=== PATIENT | male | born 1960 | race American Indian/Alaskan Native ===

== ENCOUNTER 2020-06-19 06:01 | Inpatient (IN) | payer MEDICAID ==
[2020-06-19] MEDS ORDERED: methylPREDNISolone Sod Succinate 125 MG/2 ML INJ IV ONE (06:16)
[2020-06-19] MEDS ORDERED: IPRATROPIUM 0.02% NEBU 2.5 ML IH ONE ×2 (06:19→06:27)
[2020-06-19] MEDS ORDERED: ALBUTEROL 2.5 MG/3 ML NEBU IH ONE ×3 (06:19→09:14)
--- NOTE | 2020-06-19 06:19 | Emergency Department Report ---
ED General Adult HPI - General Chief complaint: Dyspnea/Respdistress Stated complaint: TRAV Time Seen by Provider: 06/19/20 06:15 Source: patient Mode of arrival: Wheelchair Limitations: Physical Limitation - History of Present Illness Initial comments: Patient is a 60-year-old male who presents to the emergency department for evaluation of progressively worsening dyspnea over the past 3 weeks. Complains of mildly productive cough without fever. Patient denies chest pain, denies calf pain or swelling. Patient denies nausea vomiting diarrhea, denies sore throat. Patient states he had a previous episode during which she was treated by the fire department with an albuterol nebulizer with relief of the symptoms - Related Data Allergies Allergy/AdvReac Type Severity Reaction Status Date / Time No Known Allergies Allergy Verified 06/19/20 06:10 ED Review of Systems ROS: Stated complaint: TRAV Other details as noted in HPI Comment: All other systems reviewed and negative ED Past Medical Hx - Past Medical History Previous Medical History?: Yes Hx Hypertension: Yes Additional medical history: chronic back - Surgical History Past Surgical History?: No - Social History Smoking Status: Never Smoker Substance Use Type: None ED Physical Exam - General Limitations: Physical Limitation General appearance: alert, in distress - Head Head exam: Present: atraumatic, normocephalic - Eye Eye exam: Present: normal appearance - ENT ENT exam: Present: mucous membranes moist - Neck Neck exam: Present: normal inspection - Respiratory Respiratory exam: Present: respiratory distress, rales, rhonchi, accessory muscle use - Cardiovascular Cardiovascular Exam: Present: regular rate, normal rhythm. Absent: systolic murmur, diastolic murmur, rubs, gallop - GI/Abdominal GI/Abdominal exam: Present: soft, normal bowel sounds - Rectal Rectal exam: Present: deferred - Extremities Exam Extremities exam: Present: normal inspection - Back Exam Back exam: Present: normal inspection - Neurological Exam Neurological exam: Present: alert, oriented X3 - Psychiatric Psychiatric exam: Present: normal affect, normal mood - Skin Skin exam: Present: warm, dry, intact, normal color. Absent: rash ED Course Vital Signs 06/19/20 06/19/20 06/19/20 06:07 06:18 06:29 Temperature 97.6 F 97.5 F L Pulse Rate 116 H 81 Pulse Rate [ 108 H Bilateral] Respiratory 18 18 Rate Respiratory 28 H Rate [Bilateral ] Blood Pressure 100/80 110/74 O2 Sat by Pulse 96 100 Oximetry 06/19/20 06:30 Temperature Pulse Rate 109 H Pulse Rate [ Bilateral] Respiratory 28 H Rate Respiratory Rate [Bilateral ] Blood Pressure 129/100 O2 Sat by Pulse 100 Oximetry - Reevaluation(s) Reevaluation #1: 06/19/20 08:08 Patient initially treated with DuoNeb's x3, Solu-Medrol 125 IV x1. Reevaluation #2: 06/19/20 08:08 On reevaluation, patient remains dyspneic, treated with furosemide 40 mg IV x1, remains on O2 Ventimask. Reevaluation #3: 06/19/20 08:09 Despite significant diuresis, patient remains an mild to moderate respiratory distress, began on BiPAP. Patient admitted, PUI protocol and precautions initiated. ED Medical Decision Making - Lab Data Result diagrams: 06/19/20 07:04 06/19/20 07:04 Lab Results 06/19/20 06/19/20 06/19/20 Range/Units 06:20 07:04 07:04 WBC 7.9 (4.5-11.0) K/mm3 RBC 4.54 (3.65-5.03) M/mm3 Hgb 15.0 (11.8-15.2) gm/dl Hct 45.2 (35.5-45.6) % MCV 100 H (84-94) fl MCH 33 H (28-32) pg MCHC 33 (32-34) % RDW 13.8 (13.2-15.2) % Plt Count 235 (140-440) K/mm3 Lymph % (Auto) 29.9 (13.4-35.0) % [place] % (Auto) 6.9 (0.0-7.3) % Eos % (Auto) 4.6 H (0.0-4.3) % Baso % (Auto) 0.6 (0.0-1.8) % Lymph # (Auto) 2.4 (1.2-5.4) K/mm3 [place] # (Auto) 0.5 (0.0-0.8) K/mm3 Eos # (Auto) 0.4 (0.0-0.4) K/mm3 Baso # (Auto) 0.1 (0.0-0.1) K/mm3 Seg Neutrophils % 58.0 (40.0-70.0) % Seg Neutrophils # 4.6 (1.8-7.7) K/mm3 Sodium 139 (137-145) mmol/L Potassium 3.9 (3.6-5.0) mmol/L Chloride 101.5 (98-107) mmol/L Carbon Dioxide 29 (22-30) mmol/L Anion Gap 12 mmol/L BUN 11 (9-20) mg/dL Creatinine 0.9 (0.8-1.3) mg/dL Estimated GFR > 60 ml/min BUN/Creatinine Ratio 12 % Glucose 110 H (75-100) mg/dL POC Glucose 105 (70-105) mg/dL Lactic Acid (0.7-2.0) mmol/L Calcium 9.3 (8.4-10.2) mg/dL Magnesium 2.10 (1.7-2.3) mg/dL Total Bilirubin 1.10 (0.1-1.2) mg/dL AST 15 (5-40) units/L ALT 19 (7-56) units/L Alkaline Phosphatase 74 (35-129) units/L Troponin T < 0.010 (0.00-0.029) ng/mL NT-Pro-B Natriuret Pep (0-900) pg/mL Total Protein 7.4 (6.3-8.2) g/dL Albumin 4.2 (3.9-5) g/dL Albumin/Globulin Ratio 1.3 % 06/19/20 06/19/20 Range/Units 07:04 07:04 WBC (4.5-11.0) K/mm3 RBC (3.65-5.03) M/mm3 Hgb (11.8-15.2) gm/dl Hct (35.5-45.6) % MCV (84-94) fl MCH (28-32) pg MCHC (32-34) % RDW (13.2-15.2) % Plt Count (140-440) K/mm3 Lymph % (Auto) (13.4-35.0) % [place] % (Auto) (0.0-7.3) % Eos % (Auto) (0.0-4.3) % Baso % (Auto) (0.0-1.8) % Lymph # (Auto) (1.2-5.4) K/mm3 [place] # (Auto) (0.0-0.8) K/mm3 Eos # (Auto) (0.0-0.4) K/mm3 Baso # (Auto) (0.0-0.1) K/mm3 Seg Neutrophils % (40.0-70.0) % Seg Neutrophils # (1.8-7.7) K/mm3 Sodium (137-145) mmol/L Potassium (3.6-5.0) mmol/L Chloride (98-107) mmol/L Carbon Dioxide (22-30) mmol/L Anion Gap mmol/L BUN (9-20) mg/dL Creatinine (0.8-1.3) mg/dL Estimated GFR ml/min BUN/Creatinine Ratio % Glucose (75-100) mg/dL POC Glucose (70-105) mg/dL Lactic Acid 1.20 (0.7-2.0) mmol/L Calcium (8.4-10.2) mg/dL Magnesium (1.7-2.3) mg/dL Total Bilirubin (0.1-1.2) mg/dL AST (5-40) units/L ALT (7-56) units/L Alkaline Phosphatase (35-129) units/L Troponin T (0.00-0.029) ng/mL NT-Pro-B Natriuret Pep 1202 H (0-900) pg/mL Total Protein (6.3-8.2) g/dL Albumin (3.9-5) g/dL Albumin/Globulin Ratio % Vital Signs 06/19/20 06/19/20 06/19/20 06:07 06:18 06:29 Temperature 97.6 F 97.5 F L Pulse Rate 116 H 81 Pulse Rate [ 108 H Bilateral] Respiratory 18 18 Rate Respiratory 28 H Rate [Bilateral ] Blood Pressure 100/80 110/74 O2 Sat by Pulse 96 100 Oximetry 06/19/20 06:30 Temperature Pulse Rate 109 H Pulse Rate [ Bilateral] Respiratory 28 H Rate Respiratory Rate [Bilateral ] Blood Pressure 129/100 O2 Sat by Pulse 100 Oximetry - EKG Data -: EKG Interpreted by Me (Sinus tachycardia 103, no ST-T changes, normal QRS as read by me) - Radiology Data Radiology results: report reviewed Pulmonary vascular congestion per radiology Critical care attestation.: If time is entered above; I have spent that time in minutes in the direct care of this critically ill patient, excluding procedure time. ED Disposition Clinical Impression: Acute congestive heart failure, Acute respiratory failure Disposition: OP ADMIT IP TO THIS HOSP Is pt being admited?: Yes Condition: Stable Referrals: PRIMARY CARE, [Primary Care Provider] - 3-5 Days
[2020-06-19] MEDS: IPRATROPIUM/ALBUTEROL SULFATE 3 ML AMPUL.NEB IH SCH ×3 (06:30→20:30)
--- NOTE | 2020-06-19 06:57 | XRay Report ---
CHEST 1 VIEW [id number] INDICATION / CLINICAL INFORMATION: Dyspnea COMPARISON: None available. FINDINGS: SUPPORT DEVICES: None HEART / MEDIASTINUM: Mild cardiomegaly LUNGS / PLEURA: Mildly congested appearance is seen and there probably is slight interstitial edema. No definite focal infiltrates are seen. No pneumothorax. ADDITIONAL FINDINGS: No significant additional findings. Signer Name: Darvin Sawant MD Signed: 06/19/2020 6:52 AM Workstation Name: [id number]
[2020-06-19] MEDS ORDERED: FUROSEMIDE 40 MG/4 ML INJ IV ONE (07:19)
[2020-06-19 07:56] LABS: Basophils # (Auto) 0.1 K/mm3 (0.0-0.1); Eosinophils # (Auto) 0.4 K/mm3 (0.0-0.4); Eosinophils % (Auto) 4.6 % (0.0-4.3); Monocytes # (Auto) 0.5 K/mm3 (0.0-0.8); Monocytes % (Auto) 6.9 % (0.0-7.3)
[2020-06-19 07:57] LABS: Hematocrit 45.2 % (35.5-45.6); Mean Corpuscular HGB Conc 33 % (32-34); Mean Corpuscular Volume 100 fl (84-94); Red Blood Count 4.54 M/mm3 (3.65-5.03); Red Cell Distribution Width 13.8 % (13.2-15.2)
[2020-06-19 07:58] LABS: Alanine Aminotransferase 19 units/L (7-56); Albumin 4.2 g/dL (3.9-5); BUN/Creatinine Ratio 12; Basophils % (Auto) 0.6 % (0.0-1.8); Blood Urea Nitrogen 11 mg/dL (9-20); Calcium 9.3 mg/dL (8.4-10.2); Hemolysis Index 10; Lymphocytes # (Auto) 2.4 K/mm3 (1.2-5.4); Lymphocytes % (Auto) 29.9 % (13.4-35.0); Platelet Count 235 K/mm3 (140-440)
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
[2020-06-19] MEDS ORDERED: MORPHINE 2 MG/1 ML INJ IV PRN (09:00)
[2020-06-19] MEDS ORDERED: ONDANSETRON 4 MG/2 ML INJ IV PRN ×2 (09:00→22:55)
[2020-06-19] MEDS ORDERED: cefTRIAXone/NS 2 GM/100 ML 2 GM/100 ML BAG IV SCH (09:00)
[2020-06-19] MEDS ORDERED: MAGNESIUM HYDROXIDE (MOM) ORAL LIQD UDC PO PRN (09:00)
[2020-06-19] MEDS ORDERED: AZITHROMYCIN/NS 500 MG/250 ML 500 MG/250 ML BAG IV SCH (09:00)
[2020-06-19] MEDS ORDERED: ACETAMINOPHEN 325 MG TAB PO PRN ×2 (09:00→22:55)
[2020-06-19 09:30] LABS: C-Reactive Protein 0.7 mg/dL (0.00-1.30)
[2020-06-19] MEDS: dexAMETHasone 4 MG/ML VIAL IV SCH (09:42)
[2020-06-19] MEDS ORDERED: ENOXAPARIN 80 MG/0.8 ML INJ SUB-Q SCH (10:00)
--- NOTE | 2020-06-19 12:14 | Consultation ---
History of Present Illness Consult date: 06/19/20 Consult reason: congestive heart failure History of present illness: Patient is a 60-year old M who presents to the emergency department with brad rtness of breath, cough and wheezing. Chest x-ray shows no interstitial edema but he is currently undergoing further evaluation for suspected COVID 19 infection. A cardiac consultation has been requested for CHF. There is no chest pain, and no palpitations. There is mild lower extremity edema. Patient gives a history of hypertension and poly-substance abuse. He denies a prior cardiac history and had no prior cardiac workup. 12-lead ECG is sinus rhythm with no acute ST or T wave changes. No prior ECG available for comparison. Past History Past Medical History: hypertension, other (chronic back pain, sciatica) Past Surgical History: No surgical history Social history: , Lives alone, smoking, alcohol abuse, IV drug use, full code, other (cocaine, meth, crack, marijuana, tobacco, ) Family history: no significant family history Medications and Allergies Allergies Allergy/AdvReac Type Severity Reaction Status Date / Time No Known Allergies Allergy Verified 06/19/20 06:10 Active Meds: Active Medications Acetaminophen (Acetaminophen 325 Mg Tab) 650 mg PO Q4H PRN PRN Reason: Pain MILD(1-3)/Fever >100.5/MONTES Dexamethasone (Dexamethasone 4 Mg/Ml Vial) 6 mg IV QDAY [facility] Stop: 06/28/20 10:01 Last Admin: 06/19/20 09:42 Dose: 6 mg Documented by: Enoxaparin Sodium (Enoxaparin 40 Mg/0.4 Ml Inj) 40 mg SUB-Q QDAY@1000 [facility] Famotidine (Famotidine 20 Mg/2 Ml Inj) 20 mg IV BID [facility] Furosemide (Furosemide 20 Mg/2 Ml Inj) 20 mg IV BID@0600,1800 [facility] Azithromycin (Zithromax/Ns) 500 mg in 250 mls @ 250 mls/hr IV Q24H [facility] Last Admin: 06/19/20 09:17 Dose: 250 mls/hr Documented by: Ceftriaxone Sodium (Rocephin/Ns 2 Gm/100 Ml) 2 gm in 100 mls @ 200 mls/hr IV Q24H [facility]; Protocol Last Admin: 06/19/20 09:17 Dose: 200 mls/hr Documented by: Magnesium Hydroxide (Magnesium Hydroxide (Mom) Oral Liqd Udc) 30 ml PO Q4H PRN PRN Reason: Constipation Melatonin (Melatonin 5 Mg Tab) 5 mg PO QHS PRN PRN Reason: Sleep Morphine Sulfate (Morphine 2 Mg/1 Ml Inj) 2 mg IV Q4H PRN PRN Reason: Pain, Moderate (4-6) Ondansetron HCl (Ondansetron 4 Mg/2 Ml Inj) 4 mg IV Q8H PRN PRN Reason: Nausea And Vomiting Sodium Chloride (Sodium Chloride 0.9% 10 Ml Flush Syringe) 10 ml IV BID [facility] Sodium Chloride (Sodium Chloride 0.9% 10 Ml Flush Syringe) 10 ml IV PRN PRN PRN Reason: LINE FLUSH Review of Systems Cardiovascular: edema, shortness of breath, dyspnea on exertion, no chest pain, no palpitations, no rapid/irregular heart beat Physical Examination Vital Signs Temp Pulse Resp BP Pulse Ox 97.6 F 116 H 18 100/80 96 06/19/20 06:07 06/19/20 06:07 06/19/20 06:07 06/19/20 06:07 06/19/20 06:07 General appearance: no acute distress HEENT: Positive: PERRL Cardiac: Positive: Reg Rate and Rhythm Lungs: Positive: Decreased Breath Sounds Neuro: Positive: Grossly Intact Extremities: Present: +1 Edema Results 06/19/20 07:04 06/19/20 08:49 Cardiac Enzymes 06/19/20 06/19/20 Range/Units 07:04 08:49 AST 15 (5-40) units/L Lactate Dehydrogenase 165 (91-180) units/L CBC 06/19/20 Range/Units 07:04 WBC 7.9 (4.5-11.0) K/mm3 RBC 4.54 (3.65-5.03) M/mm3 Hgb 15.0 (11.8-15.2) gm/dl Hct 45.2 (35.5-45.6) % Plt Count 235 (140-440) K/mm3 Lymph # (Auto) 2.4 (1.2-5.4) K/mm3 [place] # (Auto) 0.5 (0.0-0.8) K/mm3 Eos # (Auto) 0.4 (0.0-0.4) K/mm3 Baso # (Auto) 0.1 (0.0-0.1) K/mm3 Comprehensive Metabolic Panel 06/19/20 06/19/20 Range/Units 07:04 08:49 Sodium 139 (137-145) mmol/L Potassium 3.9 (3.6-5.0) mmol/L Chloride 101.5 (98-107) mmol/L Carbon Dioxide 29 (22-30) mmol/L BUN 11 (9-20) mg/dL Creatinine 0.9 (0.8-1.3) mg/dL Glucose 110 H 136 H (75-100) mg/dL Calcium 9.3 (8.4-10.2) mg/dL AST 15 (5-40) units/L ALT 19 (7-56) units/L Alkaline Phosphatase 74 (35-129) units/L Total Protein 7.4 (6.3-8.2) g/dL Albumin 4.2 (3.9-5) g/dL
[2020-06-19] MEDS: FAMOTIDINE 20 MG/2 ML INJ IV SCH ×2 (12:21→22:13)
--- NOTE | 2020-06-19 13:31 | Consultation ---
History of Present Illness Consult date: 06/19/20 Requesting physician: KODY PETERSON Reason for consult: other (Acute Hypoxemic Respiratory Failure; PUI COVID-19) History of present illness: PULMONARY/CCM CONSULT NOTE (Full dictation # ) Please see dictated notes for full details Past History Past Medical History: hypertension, other (chronic back pain, sciatica) Past Surgical History: No surgical history Social history: , Lives alone, smoking, alcohol abuse, IV drug use, full code, other (cocaine, meth, crack, marijuana, tobacco, ) Family history: no significant family history Medications and Allergies Allergies Allergy/AdvReac Type Severity Reaction Status Date / Time No Known Allergies Allergy Verified 06/19/20 06:10 Active Meds: Active Medications Acetaminophen (Acetaminophen 325 Mg Tab) 650 mg PO Q4H PRN PRN Reason: Pain MILD(1-3)/Fever >100.5/MONTES Dexamethasone (Dexamethasone 4 Mg/Ml Vial) 6 mg IV QDAY [facility] Stop: 06/28/20 10:01 Last Admin: 06/19/20 09:42 Dose: 6 mg Documented by: Enoxaparin Sodium (Enoxaparin 40 Mg/0.4 Ml Inj) 40 mg SUB-Q QDAY@1000 [facility] Famotidine (Famotidine 20 Mg/2 Ml Inj) 20 mg IV BID [facility] Last Admin: 06/19/20 12:21 Dose: Not Given Documented by: Furosemide (Furosemide 20 Mg/2 Ml Inj) 20 mg IV BID@0600,1800 OP[facility] Azithromycin (Zithromax/Ns) 500 mg in 250 mls @ 250 mls/hr IV Q24H [facility] Last Admin: 06/19/20 09:17 Dose: 250 mls/hr Documented by: Ceftriaxone Sodium (Rocephin/Ns 2 Gm/100 Ml) 2 gm in 100 mls @ 200 mls/hr IV Q24H [facility]; Protocol Last Admin: 06/19/20 09:17 Dose: 200 mls/hr Documented by: Magnesium Hydroxide (Magnesium Hydroxide (Mom) Oral Liqd Udc) 30 ml PO Q4H PRN PRN Reason: Constipation Melatonin (Melatonin 5 Mg Tab) 5 mg PO QHS PRN PRN Reason: Sleep Morphine Sulfate (Morphine 2 Mg/1 Ml Inj) 2 mg IV Q4H PRN PRN Reason: Pain, Moderate (4-6) Ondansetron HCl (Ondansetron 4 Mg/2 Ml Inj) 4 mg IV Q8H PRN PRN Reason: Nausea And Vomiting Sodium Chloride (Sodium Chloride 0.9% 10 Ml Flush Syringe) 10 ml IV BID [facility] Last Admin: 06/19/20 12:25 Dose: Not Given Documented by: Sodium Chloride (Sodium Chloride 0.9% 10 Ml Flush Syringe) 10 ml IV PRN PRN PRN Reason: LINE FLUSH Physical Examination Vital signs: Vital Signs Temp Pulse Resp BP Pulse Ox 97.6 F 116 H 18 100/80 96 06/19/20 06:07 06/19/20 06:07 06/19/20 06:07 06/19/20 06:07 06/19/20 06:07 Results - Laboratory Findings CBC and BMP: 06/19/20 07:04 06/19/20 08:49 PT/INR, D-dimer D-Dimer 1022.01 ng/mlDDU (0-234) H 06/19/20 08:15 Abnormal lab findings: Abnormal Labs 06/19/20 06/19/20 06/19/20 07:04 07:04 07:04 MCV 100 H MCH 33 H Eos % (Auto) 4.6 H D-Dimer Glucose 110 H NT-Pro-B Natriuret Pep 1202 H 06/19/20 06/19/20 08:15 08:49 MCV MCH Eos % (Auto) D-Dimer 1022.01 H Glucose 136 H NT-Pro-B Natriuret Pep
--- NOTE | 2020-06-19 13:47 | Consultation ---
History of Present Illness - Reason for Consult Consult date: 06/19/20 r/o COVID Requesting physician: KODY PETERSON - History of Present Illness 60 years old male with history of hypertension, chronic back pain, bipolar depression, cocaine, marijuana and meth abuse, tobacco abuse, admitted on 06/19/2020 secondary to a month history of dry cough associated with subjective fever, generalized malaise. Patient denies any contact with COVID-19 patients.temperature 97.6, HR 116, RR 18, O2 sat 96, BP 100/80. Initial WBC 7.9. D-dimer 1022. Ferritin 200. BNP 1202. Procalcitonin 0.05. In the ED patient was placed on Ventimask and then placed on BiPAP. Chest x-ray shows interstitial edema bilaterally. Procalcitonin 0.05. Review of Systems: reviewed ED and H&P notes. Review of system deferred to minimize COVID-19 transmission. Past History Past Medical History: hypertension, other (chronic back pain, sciatica) Past Surgical History: No surgical history Social history: , Lives alone, smoking, alcohol abuse, IV drug use, full code, other (cocaine, meth, crack, marijuana, tobacco, ) Family history: no significant family history Medications and Allergies Allergies Allergy/AdvReac Type Severity Reaction Status Date / Time No Known Allergies Allergy Verified 06/19/20 06:10 Active Meds: Active Medications Acetaminophen (Acetaminophen 325 Mg Tab) 650 mg PO Q4H PRN PRN Reason: Pain MILD(1-3)/Fever >100.5/MONTES Dexamethasone (Dexamethasone 4 Mg/Ml Vial) 6 mg IV QDAY [facility] Stop: 06/28/20 10:01 Last Admin: 06/19/20 09:42 Dose: 6 mg Documented by: Enoxaparin Sodium (Enoxaparin 40 Mg/0.4 Ml Inj) 40 mg SUB-Q QDAY@1000 OPAL Famotidine (Famotidine 20 Mg/2 Ml Inj) 20 mg IV BID [facility] Last Admin: 06/19/20 12:21 Dose: Not Given Documented by: Furosemide (Furosemide 20 Mg/2 Ml Inj) 20 mg IV BID@0600,1800 OPAL Azithromycin (Zithromax/Ns) 500 mg in 250 mls @ 250 mls/hr IV Q24H [facility] Last Admin: 06/19/20 09:17 Dose: 250 mls/hr Documented by: Ceftriaxone Sodium (Rocephin/Ns 2 Gm/100 Ml) 2 gm in 100 mls @ 200 mls/hr IV Q24H [facility]; Protocol Last Admin: 06/19/20 09:17 Dose: 200 mls/hr Documented by: Magnesium Hydroxide (Magnesium Hydroxide (Mom) Oral Liqd Udc) 30 ml PO Q4H PRN PRN Reason: Constipation Melatonin (Melatonin 5 Mg Tab) 5 mg PO QHS PRN PRN Reason: Sleep Morphine Sulfate (Morphine 2 Mg/1 Ml Inj) 2 mg IV Q4H PRN PRN Reason: Pain, Moderate (4-6) Ondansetron HCl (Ondansetron 4 Mg/2 Ml Inj) 4 mg IV Q8H PRN PRN Reason: Nausea And Vomiting Sodium Chloride (Sodium Chloride 0.9% 10 Ml Flush Syringe) 10 ml IV BID [facility] Last Admin: 06/19/20 12:25 Dose: Not Given Documented by: Sodium Chloride (Sodium Chloride 0.9% 10 Ml Flush Syringe) 10 ml IV PRN PRN PRN Reason: LINE FLUSH Physical Examination - Physical Exam Narrative exam: Physical exam deferred to minimize COVID-19 transmission during pandemic. ER and internal medicine physical examination notes reviewed. - Constitutional Vitals: Vital Signs Temp Pulse Resp BP Pulse Ox 97.5 F L 109 H 28 H 129/100 100 06/19/20 06:18 06/19/20 06:30 06/19/20 06:30 06/19/20 06:30 06/19/20 06:30 Temperature -Last 24 Hours Temperature 97.5 F Temperature 97.6 F Results - Labs CBC & Chem 7: 06/19/20 07:04 06/19/20 08:49 Labs: Abnormal lab results 06/19/20 06/19/20 06/19/20 Range/Units 07:04 07:04 07:04 MCV 100 H (84-94) fl MCH 33 H (28-32) pg Eos % (Auto) 4.6 H (0.0-4.3) % D-Dimer (0-234) ng/mlDDU Glucose 110 H (75-100) mg/dL NT-Pro-B Natriuret Pep 1202 H (0-900) pg/mL 06/19/20 06/19/20 Range/Units 08:15 08:49 MCV (84-94) fl MCH (28-32) pg Eos % (Auto) (0.0-4.3) % D-Dimer 1022.01 H (0-234) ng/mlDDU Glucose 136 H (75-100) mg/dL NT-Pro-B Natriuret Pep (0-900) pg/mL Assessment and Plan Cultures: Blood culture no growth today SARS CoV2 PCR pending Assessment: 60 years old male with history of hypertension, chronic back pain, bipolar depression, cocaine, marijuana and meth abuse, tobacco abuse, admitted on 06/19/2020 secondary to a month history of dry cough associated with subjective fever, generalized malaise: #Severe sepsis: Present on admission with tachycardia, hypotension, hypoxia; likely due to bilateral pneumonia. #Bilateral pneumonia versus volume overload: Suspect COVID-19 infection. Noted mildly elevated proBNP. Procalcitonin is low, doubt bacterial component. #Acute hypoxemic respiratory failure: Now on BiPAP. Likely secondary to bilateral pneumonia +/- volume overload #Bipolar depression #Polysubstance abuse Recommendations: -Needs to rule out PE and DVT -Follow-up SARS-CoV-2 PCR -Obtain SARS Covid 2 IgG -Continue dexamethasone 6 mg IV/PO daily for now -If SARS-CoV-2 PCR is positive start remdesivir for 5 days -Monitor inflammatory markers - ferritin, Ddimer, CRP, LDH -Monitor liver function test on Remdesivir -Continue anticoagulation per System Protocol -Stop ceftriaxone and azithromycin, procalcitonin <0.25 ng/mL All laboratory, cultures and imaging were reviewed. Will follow Mis Ferrer MD Infectious Diseases [employer] [facility] M [phone] O [phone]
--- NOTE | 2020-06-19 14:18 | Vascular Lab Report ---
DUPLEX DOPPLER LOWER EXTREMITY VEINS, BILATERAL INDICATION: r/o dvt. TECHNIQUE: Duplex doppler imaging was performed through the veins of both lower extremities using ve nous compression and other maneuvers. COMPARISON: No relevant prior imaging study available. FINDINGS: Right Common femoral vein: Negative. Right Superficial femoral vein: Negative. Right Popliteal vein: Negative. Right Calf veins: Negative. Left Common femoral vein: Negative. Left Superficial femoral vein: Negative. Left Popliteal vein: Negative. Left Calf veins: Negative. Additional findings: None. IMPRESSION: No sonographic evidence for DVT in either lower extremity. Signer Name: Juan Carlos Guzman Jr, MD Signed: 06/19/2020 2:14 PM Workstation Name: [id number]
[2020-06-19] MEDS: ENOXAPARIN 40 MG/0.4 ML INJ SUB-Q SCH (14:32)
--- NOTE | 2020-06-19 14:49 | Consultation ---
History of Present Illness Consult date: 06/19/20 Reason for consult: dyspnea, cough History of present illness: This is a 60-year-old male with HTN, chronic back pain, sciatica and drug abuse (cocaine, marijuana, methamphetamine, cigarettes (1/2 ppd), crack) who presents to the emergency department for evaluation of progressively worsening dyspnea over the past 1 month with cough (occasionally productive), subjective fevers, excessive fatigue and atypical chest pain with cough and BUE swelling. Patient denies nausea,vomiting, diarrhea, chills, hemopytsis, recent weight loss, loss of sense of taste or smell, night sweats or chest pain. Patient denies any recent sick contacts or known COVID-19 exposure. Patient states he has had previous similar episodes during which he was treated by the fire department with an albuterol nebulizer with relief of the symptoms. Patient states that he has a history of bipolar and depression and has auditory and visual hallucinations. In the emergency department the patient received albuterol, Atrovent, Solu-Medrol and was diuresed with 40 mg of Lasix but despite this he still remained dyspneic and tachypneic on a Ventimask and the decision was made to begin BiPAP therapy. Patient was also made a COVID-19 PUI and a COVID-19 PCR was sent. Work-up in the emergency department revealed elevated proBNP of 1202 and his chest x-ray was mildly congested with probable slight interstitial edema and mild cardiomegaly with no focal infiltrates. Brandon hernandez will be admitted to the hospitalist service as a COVID-19 PUI with acute congestive heart failure and acute respiratory failure. Patient smokes ciaretts, says 1 pack for 1 month 13 years. Patient drinks alcohol and uses illegal drugs. He is not doing any job. Not and has two children. Patient has no known drug allergies. Patient alert, awake and resting on room air. O2 saturation 97%. Still complaining shortness of breath and non productive cough. Patient afebrile. Has no leukocytosis. Chest xray obtained 06/19/20 reported Mildly congested appearance is seen and there probably is slight interstitial edema. No definite focal infiltrates are seen. No pneumothorax. Venous doppler studies obtained 06/19/20 reported No sonographic evidence for DVT in either lower extremity. Patient presently on Dexamethasone, S/C Lovenox, Famotidine. Past History Past Medical History: heart failure, hypertension, other (chronic back pain, sciatica) Past Surgical History: No surgical history Social history: , Lives alone, smoking, alcohol abuse, IV drug use, full code, other (cocaine, meth, crack, marijuana, tobacco, ) Family history: no significant family history Medications and Allergies Allergies Allergy/AdvReac Type Severity Reaction Status Date / Time No Known Allergies Allergy Verified 06/19/20 06:10 Active Meds: Active Medications Acetaminophen (Acetaminophen 325 Mg Tab) 650 mg PO Q4H PRN PRN Reason: Pain MILD(1-3)/Fever >100.5/MONTES Dexamethasone (Dexamethasone 4 Mg/Ml Vial) 6 mg IV QDAY [facility] Stop: 06/28/20 10:01 Last Admin: 06/19/20 09:42 Dose: 6 mg Documented by: Enoxaparin Sodium (Enoxaparin 40 Mg/0.4 Ml Inj) 40 mg SUB-Q QDAY@1000 [facility] Last Admin: 06/19/20 14:32 Dose: Not Given Documented by: Famotidine (Famotidine 20 Mg/2 Ml Inj) 20 mg IV BID [facility] Last Admin: 06/19/20 12:21 Dose: Not Given Documented by: Furosemide (Furosemide 20 Mg/2 Ml Inj) 20 mg IV BID@0600,1800 [facility] Magnesium Hydroxide (Magnesium Hydroxide (Mom) Oral Liqd Udc) 30 ml PO Q4H PRN PRN Reason: Constipation Melatonin (Melatonin 5 Mg Tab) 5 mg PO QHS PRN PRN Reason: Sleep Morphine Sulfate (Morphine 2 Mg/1 Ml Inj) 2 mg IV Q4H PRN PRN Reason: Pain, Moderate (4-6) Ondansetron HCl (Ondansetron 4 Mg/2 Ml Inj) 4 mg IV Q8H PRN PRN Reason: Nausea And Vomiting Sodium Chloride (Sodium Chloride 0.9% 10 Ml Flush Syringe) 10 ml IV BID [facility] Last Admin: 06/19/20 12:25 Dose: Not Given Documented by: Sodium Chloride (Sodium Chloride 0.9% 10 Ml Flush Syringe) 10 ml IV PRN PRN PRN Reason: LINE FLUSH Review of Systems All systems: negative Physical Examination Vital signs: Vital Signs Temp Pulse Resp BP Pulse Ox 97.6 F 116 H 18 100/80 96 06/19/20 06:07 06/19/20 06:07 06/19/20 06:07 06/19/20 06:07 06/19/20 06:07 General appearance: no acute distress, alert Eyes: non-icteric ENT: oropharynx moist Neck: supple, no JVD Effort: normal Ascultation: Bilateral: diminished breath sounds Cardiovascular: regular rate and rhythm Gastrointestinal: normoactive bowel sounds, soft, non-tender Integumentary: normal Extremities: no cyanosis, no edema Musculoskeletal: no deformities Gait: other (Resting in bed.) normal mental status, non-focal exam, pupils equal and round, CN II-XII normal affect normal Results - Laboratory Findings CBC and BMP: 06/19/20 07:04 06/19/20 08:49 PT/INR, D-dimer D-Dimer 1022.01 ng/mlDDU (0-234) H 06/19/20 08:15 Abnormal lab findings: Abnormal Labs 06/19/20 06/19/20 06/19/20 07:04 07:04 07:04 MCV 100 H MCH 33 H Eos % (Auto) 4.6 H D-Dimer Glucose 110 H NT-Pro-B Natriuret Pep 1202 H 06/19/20 06/19/20 08:15 08:49 MCV MCH Eos % (Auto) D-Dimer 1022.01 H Glucose 136 H NT-Pro-B Natriuret Pep - Diagnostic Findings Chest x-ray: report reviewed, image reviewed Additional studies: CHEST 1 VIEW 0645 06/19/20 INDICATION / CLINICAL INFORMATION: Dyspnea COMPARISON: None available. FINDINGS: SUPPORT DEVICES: None HEART / MEDIASTINUM: Mild cardiomegaly LUNGS / PLEURA: Mildly congested appearance is seen and there probably is slight interstitial edema. No definite focal infiltrates are seen. No pneumothorax. ADDITIONAL FINDINGS: No significant additional findings. DUPLEX DOPPLER LOWER EXTREMITY VEINS, BILATERAL 06/19/20 INDICATION: r/o dvt. TECHNIQUE: Duplex doppler imaging was performed through the veins of both lower extremities using venous compression and other maneuvers. COMPARISON: No relevant prior imaging study available. FINDINGS: Right Common femoral vein: Negative. Right Superficial femoral vein: Negative. Right Popliteal vein: Negative. Right Calf veins: Negative. Left Common femoral vein: Negative. Left Superficial femoral vein: Negative. Left Popliteal vein: Negative. Left Calf veins: Negative. Additional findings: None. IMPRESSION: No sonographic evidence for DVT in either lower extremity. Assessment and Plan This is a 60-year-old male with HTN, chronic back pain, sciatica and drug abuse (cocaine, marijuana, methamphetamine, cigarettes (1/2 ppd), crack) who presents to the emergency department for evaluation of progressively worsening dyspnea over the past 1 month with cough (occasionally productive), subjective fevers, excessive fatigue and atypical chest pain with cough and BUE swelling. Patient denies nausea,vomiting, diarrhea, chills, hemopytsis, recent weight l oss, loss of sense of taste or smell, night sweats or chest pain. Patient denies any recent sick contacts or known COVID-19 exposure. Patient states he has had previous similar episodes during which he was treated by the fire department with an albuterol nebulizer with relief of the symptoms. Patient states that he has a history of bipolar and depression and has auditory and visual hallucinations. In the emergency department the patient received albuterol, Atrovent, Solu-Medrol and was diuresed with 40 mg of Lasix but despite this he still remained dyspneic and tachypneic on a Ventimask and the decision was made to begin BiPAP therapy. Patient was also made a COVID-19 PUI and a COVID-19 PCR was sent. Work-up in the emergency department revealed elevated proBNP of 1202 and his chest x-ray was mildly congested with probable slight interstitial edema and mild cardiomegaly with no focal infiltrates. Patient will be admitted to the hospitalist service as a COVID-19 PUI with acute congestive heart failure and acute respiratory failure. Patient smokes [employer], says 1 pack for 1 month 13 years. Patient drinks alcohol and uses illegal drugs. He is not doing any job. Not and has two children. Patient has no known drug allergies. Patient alert, awake and resting on room air. O2 saturation 97%. Still complaining shortness of breath and non productive cough. Patient afebrile. Has no leukocytosis. Chest xray obtained 06/19/20 reported Mildly congested appearance is seen and there probably is slight interstitial edema. No definite focal infiltrates are seen. No pneumothorax. Venous doppler studies obtained 06/19/20 reported No sonographic evidence for DVT in either lower extremity. Patient presently on Dexamethasone, S/C Lovenox, Famotidine. I spent critical care time of 50 minitues on this patient , reviewing the chart, obtaining history, examining the patient, review labs, chest xray, talking to the nursing staff, respiratory therapy and work out plan of treatment in this critically ill COVID 19 suspect patient. - Patient Problems (1) Acute respiratory failure Current Visit: Yes Status: Acute Plan to address problem: Improved. Patient presently on room air. Albuterol inhaler 2 puffs po qid prn for shortness of breath. Patient presently on Dexamethasone, S/C Lovenox, Famotidine. (2) Acute congestive heart failure Current Visit: Yes Status: Acute Plan to address problem: Patient is on Lasix. Recommend to consult cardiology. (3) Suspected COVID-19 virus infection Current Visit: Yes Status: Acute Plan to address problem: COvid 19 antibodies negative. COVID 19 PCR pending.
[2020-06-19] MEDS ORDERED: FUROSEMIDE 20 MG/2 ML INJ IV SCH (18:00)
[2020-06-19] MEDS: ASPIRIN EC 81 MG TAB PO SCH (20:30)
[2020-06-19] MEDS: SPIRONOLACTONE 25 MG TAB PO SCH (20:30)
[2020-06-19] MEDS ORDERED: MELATONIN 5 MG TAB PO PRN (22:00)
--- NOTE | 2020-06-19 23:04 | Cat Scan Report ---
CTA CHEST WITH IV CONTRAST INDICATION: chest pain with S.O.B. CONTRAST: 100 cc Omnipaque 350 IV COMPARISON: Portable chest x-ray tonight Three-plane MIP reconstructions were produced. All CT scans at this location are performed using CT d ose reduction for ALARA by means of automated exposure control. FINDINGS: No significant axillary or chest wall lesions are seen. Visualized portions of the abdomen show fatty infiltration of the liver and mild distention of the stomach food. Colonic diverticulosis is seen without evidence of diverticulitis. Minimal cholelithiasis is seen without obvious acute guidry ge. Mild anneliese prominence is seen in the superior mediastinum between the right brachiocephalic vein and innominate artery. Small nodes are seen in this area with one node having a short axis diameter of 13 mm. No hilar masses are seen. A node is seen in the right cardiophrenic angle fat with a short axis diameter of 9 mm. Mild coronary artery calcification are noted. Small pericardial effusion is seen. Small left and trace right pleural effusions are noted. No pneumothorax or pneumomediastinum are seen . No obvious endobronchial lesions are noted. Atelectatic changes are seen in the left lower lobe in association with the pleural effusion and pneumonitis is not fully excluded. In the right upper lobe there are scattered small interstitial type peripheral densities of unknown chronicity which possibly could represent minimal patchy acute infiltrate. Mild diffuse increase in interstitial markings in t he lung bases particularly could relate to mild interstitial pulmonary edema. Aorta shows no aneurysmal dilatation or evidence of dissection. Marginal opacification of the pulmonary arterial system was achieved making evaluation of particularl y the smaller arteries difficult. Air is also some artifact in the lower lobes bilaterally. I do not clearly see a pulmonary embolism, particularly in the large or central arteries. IMPRESSION: 1. No clear evidence of pulmonary thromboembolism, particularly in the large or central arteries, in a technically challenging study 2. Small left pleural effusion with associated atelectasis. Pneumonitis cannot be excluded in the lef t base. Trace right pleural effusion with mild atelectasis. 3. Patchy peripheral interstitial minimal densities in the right upper lobe of unknown chronicity. Ag ain an acute mild infiltrate cannot be excluded. 4. Diffuse mild increased interstitial markings could relate to mild interstitial edema 5. Mild mediastinal and right cardiophrenic angle anneliese prominence. Recommend follow-up. Signer Name: Darvin Sawant MD Signed: 06/19/2020 11:00 PM Workstation Name: [id number]
[2020-06-20] MEDS: FUROSEMIDE 40 MG/4 ML INJ IV SCH ×2 (06:08→17:21)
[2020-06-20 06:09] LABS: BUN/Creatinine Ratio 18; Blood Urea Nitrogen 14 mg/dL (9-20); Calcium 10.1 mg/dL (8.4-10.2); Hemolysis Index 12
--- NOTE | 2020-06-20 07:51 | Progress Note ---
Assessment and Plan Cultures: Blood culture no growth today SARS CoV2 PCR pending SARS Cov2 IgG negative Assessment: 60 years old male with history of hypertension, chronic back pain, bipolar depression, cocaine, marijuana and meth abuse, tobacco abuse, admitted on 06/19/2020 secondary to a month history of dry cough associated with subjective fever, generalized malaise: #Severe sepsis: Present on admission with tachycardia, hypotension, hypoxia; likely due to bilateral pneumonia. #Bilateral pneumonia versus volume overload: Suspect COVID-19 infection. Noted mildly elevated proBNP. Procalcitonin is low, doubt bacterial component. #Acute hypoxemic respiratory failure: Now on BiPAP. Likely secondary to bilateral pneumonia +/- volume overload #Bipolar depression #Polysubstance abuse Recommendations: -Needs to rule out PE and DVT elevated D-dimer -Follow-up SARS-CoV-2 PCR which is pending -Continue dexamethasone 6 mg IV/PO daily for now -If SARS-CoV-2 PCR is positive start remdesivir for 5 days -Monitor inflammatory markers - ferritin, Ddimer, CRP, LDH -Monitor liver function test on Remdesivir -Continue anticoagulation per System Protocol All laboratory, cultures and imaging were reviewed. Will follow Mis Ferrer MD Infectious Diseases Voice Systems Engineer [facility] M [phone] O [phone] Subjective Date of service: 06/20/20 Principal diagnosis: Presumed COVID Interval history: Patient remains on room air, O2 sats 94%, no desaturations overnight. Tachycardia improving. Objective - Exam Narrative Exam: Physical exam deferred to minimize COVID-19 transmission during pandemic. ER and internal medicine physical examination notes reviewed. - Constitutional Vitals: Vital Signs Temp Pulse Resp BP Pulse Ox 98.6 F 99 H 18 154/91 94 06/19/20 21:23 06/20/20 03:45 06/20/20 03:45 06/20/20 03:45 06/20/20 03:45 Temperature -Last 24 Hours Temperature 98.6 F - Labs CBC & Chem 7: 06/19/20 07:04 06/20/20 05:24 Labs: Abnormal lab results 06/19/20 06/19/20 06/19/20 Range/Units 07:04 07:04 07:04 MCV 100 H (84-94) fl MCH 33 H (28-32) pg Eos % (Auto) 4.6 H (0.0-4.3) % D-Dimer (0-234) ng/mlDDU Glucose 110 H (75-100) mg/dL NT-Pro-B Natriuret Pep 1202 H (0-900) pg/mL 06/19/20 06/19/20 06/20/20 Range/Units 08:15 08:49 05:24 MCV (84-94) fl MCH (28-32) pg Eos % (Auto) (0.0-4.3) % D-Dimer 1022.01 H (0-234) ng/mlDDU Glucose 136 H 130 H (75-100) mg/dL NT-Pro-B Natriuret Pep (0-900) pg/mL
[2020-06-20] MEDS: ENOXAPARIN 40 MG/0.4 ML INJ SUB-Q SCH (09:28)
[2020-06-20] MEDS: carvediloL 6.25 MG TAB PO SCH ×2 (09:29→21:02)
[2020-06-20] MEDS: LISINOPRIL 5 MG TAB PO SCH (09:29)
[2020-06-20] MEDS: ASPIRIN EC 81 MG TAB PO SCH (09:29)
[2020-06-20] MEDS: FAMOTIDINE 20 MG TAB PO SCH ×2 (09:29→21:01)
[2020-06-20] MEDS: SPIRONOLACTONE 25 MG TAB PO SCH (09:29)
[2020-06-20] MEDS: dexAMETHasone 4 MG/ML VIAL IV SCH (09:29)
[2020-06-20] MEDS ORDERED: LISINOPRIL 5 MG TAB PO SCH (10:00)
--- NOTE | 2020-06-20 10:41 | Consultation ---
History of Present Illness - Reason for Consult Consult date: 06/20/20 Reason for consult: psychosis - History of Present Psychiatric Illness Jigar Burton is a 60y/o male patient who presented to the ED with difficulty breathing. During my interview with the patient today, he is sitting in bed. The patient is cooperative, but paranoid. He says that people seem to get upset when he ask them a question because they feel as if he is testing their smartness. The patient says he is bitter, depressed, and feels paranoid all the time. He says "I make enemies real easy." He says "I'm angry." The patient says he lost his a couple of months ago, a home in [place], and had to move in with his kids. He says they kicked him out. When asked about SI/HI, the patient pauses and says "I don't want to be admitted into a hospital." He then says "but the voices are telling me that that's what you are going to do if I answer a certain way." The patient says "I'm not suicidal, but I keep hearing them say get stopped by the police and grab their gun and start shooting." He says, but "it's only if I get stopped and they try to take me to [facility]." He says "the voices keep telling me that." The patient report "a lot of flashbacks of things in my past." He says "I just keep hearing these voices say these things to me." PAST PSYCHIATRIC HISTORY Diagnoses: Bipolar, PTSD Suicide attempts or Self-harm behavior: Twice Prior psychiatric hospitalizations: Twice Substance Abuse history: cocaine Previous psychiatric medications tried: Denies Outpatient treatment: Denies PAST MEDICAL HISTORY: None reported Family Psychiatric History: None reported SOCIAL HISTORY Marital Status: single Living Arrangements: with a friend Employment Status: Disabled Access to guns/weapons: none Education: High school History of abuse: Denies Legal History: [facility] REVIEW OF SYSTEMS Constitutional: Negative for weight loss ENT: Negative for stridor Respiratory: Negative for cough or hemoptysis All other systems reviewed and are negative MENTAL STATUS EXAMINATION General Appearance and Behavior: Age appropriate, fair good hygiene, wearing appropriate clothes, good eye contact, uncooperative Cooperation: cooperative Psychomotor Behavior: guarded Mood: depressed, paranoid Affect and affective range: Congruent with stated mood Thought Process: illogical Thought Content: paranoia, delusions Speech: normal tone and pace Suicidal Ideation: Denies Homicidal Ideation: Yes, passive Hallucinations: Auditory Delusions: yes, paranoid Impulse Control: Impaired Insight and Judgment: Impaired insight and judgment Memory: Limited Attention: Impaired Orientation: Alert, oriented Assessment and Plan Bipolar Disorder PTSD Substance Use Disorder Treatment Depakote DR 125mg po BID Trazodone 50mg po qhs Risperidone 0.25mg po BID Sitter: Defer to primary Medical: per primary Disposition: Recommend acute inpatient psychiatric treatment once medically clear. Case staffed with Dr. Arboleda Medications and Allergies Allergies Allergy/AdvReac Type Severity Reaction Status Date / Time No Known Allergies Allergy Verified 06/19/20 06:10 Active Meds: Active Medications Acetaminophen (Acetaminophen 325 Mg Tab) 650 mg PO Q4H PRN PRN Reason: Pain MILD(1-3)/Fever >100.5/MONTES Aspirin (Aspirin Ec 81 Mg Tab) 81 mg PO QDAY [facility] Last Admin: 06/20/20 09:29 Dose: 81 mg Documented by: Carvedilol (Carvedilol 6.25 Mg Tab) 6.25 mg PO BID [facility] Last Admin: 06/20/20 09:29 Dose: 6.25 mg Documented by: Dexamethasone (Dexamethasone 4 Mg/Ml Vial) 6 mg IV QDAY [facility] Stop: 06/28/20 10:01 Last Admin: 06/20/20 09:29 Dose: 6 mg Documented by: Enoxaparin Sodium (Enoxaparin 40 Mg/0.4 Ml Inj) 40 mg SUB-Q QDAY@1000 [facility] Last Admin: 06/20/20 09:28 Dose: 40 mg Documented by: Famotidine (Famotidine 20 Mg Tab) 20 mg PO BID [facility] Last Admin: 06/20/20 09:29 Dose: 20 mg Documented by: Furosemide (Furosemide 40 Mg/4 Ml Inj) 40 mg IV 0600,1800 [facility] Last Admin: 06/20/20 06:08 Dose: 40 mg Documented by: Lisinopril (Lisinopril 5 Mg Tab) 5 mg PO QDAY [facility] Last Admin: 06/20/20 09:29 Dose: 5 mg Documented by: Magnesium Hydroxide (Magnesium Hydroxide (Mom) Oral Liqd Udc) 30 ml PO Q4H PRN PRN Reason: Constipation Melatonin (Melatonin 5 Mg Tab) 5 mg PO QHS PRN PRN Reason: Sleep Morphine Sulfate (Morphine 2 Mg/1 Ml Inj) 2 mg IV Q4H PRN PRN Reason: Pain, Moderate (4-6) Ondansetron HCl (Ondansetron 4 Mg/2 Ml Inj) 4 mg IV Q8H PRN PRN Reason: Nausea And Vomiting Sodium Chloride (Sodium Chloride 0.9% 10 Ml Flush Syringe) 10 ml IV BID [facility] Last Admin: 06/20/20 09:29 Dose: 10 ml Documented by: Sodium Chloride (Sodium Chloride 0.9% 10 Ml Flush Syringe) 10 ml IV PRN PRN PRN Reason: LINE FLUSH Spironolactone (Spironolactone 25 Mg Tab) 25 mg PO QDAY [facility] Last Admin: 06/20/20 09:29 Dose: 25 mg Documented by: Mental Status Exam - Vital signs Last Vital Signs Temp 98.3 F 06/20/20 09:14 Pulse 109 H 06/20/20 09:14 Resp 18 06/20/20 09:14 BP 144/98 06/20/20 09:14 Pulse Ox 96 06/20/20 09:14 Results Result Diagrams: 06/19/20 07:04 06/20/20 05:24 Abnormal lab results 06/20/20 Range/Units 05:24 Glucose 130 H (75-100) mg/dL All other labs normal.
--- NOTE | 2020-06-20 12:01 | Progress Note ---
Assessment and Plan Acute CHF, new onset Hypertension Poly-substance abuse Recommendations: Advised sodium and fluid restriction. Continue medical therapy for what is likely a systolic heart failure exacerbation. An echocardiogram has been ordered for left ventricular function and valvular function assessment. Ischemic work-up with a cardiac cath is planned for tomorrow. Subjective Date of service: 06/20/20 Principal diagnosis: Presumed COVID Interval history: Patient is resting in bed and appears comfortable. Reports his breathing has improved. Denies chest pain. Objective Vital Signs Temp Pulse Resp BP BP Pulse Ox 06/20/20 10:58 94 06/20/20 09:14 98.3 F 109 H 18 144/98 96 06/20/20 08:30 108 H 19 161/100 97 06/20/20 08:25 115 H 23 148/103 79 L 06/20/20 08:11 148/103 97 06/20/20 08:01 106 H 15 148/103 96 06/20/20 07:51 107 H 20 148/103 97 06/20/20 07:41 112 H 21 148/103 96 06/20/20 07:31 115 H 24 148/103 95 06/20/20 07:21 106 H 148/103 97 06/20/20 07:11 112 H 148/103 97 06/20/20 07:00 106 H 148/103 97 06/20/20 06:51 105 H 18 152/110 96 06/20/20 06:41 111 H 20 164/114 98 06/20/20 06:31 107 H 18 164/114 97 06/20/20 06:21 109 H 10 L 147/111 98 06/20/20 06:11 106 H 20 147/111 95 06/20/20 06:01 105 H 15 204/150 97 06/20/20 05:51 97 H 14 152/100 96 06/20/20 05:41 102 H 13 152/100 97 06/20/20 05:31 105 H 19 152/100 95 06/20/20 05:21 101 H 16 152/100 95 06/20/20 05:11 102 H 17 152/100 96 06/20/20 05:00 152/100 95 06/20/20 04:51 126/75 96 06/20/20 04:41 126/75 98 06/20/20 04:31 126/75 94 06/20/20 04:21 102 H 18 126/75 96 06/20/20 04:11 101 H 15 126/75 95 06/20/20 04:01 100 H 16 126/75 94 06/20/20 03:51 99 H 16 154/91 94 06/20/20 03:45 99 H 18 154/91 94 06/20/20 03:31 154/91 98 06/20/20 03:15 154/91 93 06/20/20 03:00 154/91 94 06/20/20 02:45 155/100 94 06/20/20 02:31 155/100 94 06/20/20 02:15 155/100 95 06/20/20 02:00 155/100 95 06/20/20 01:45 161/99 91 06/20/20 01:30 147/101 95 06/20/20 01:15 155/111 94 06/20/20 01:00 155/111 94 06/20/20 00:45 154/104 97 06/20/20 00:30 146/105 96 06/20/20 00:15 128/92 92 06/20/20 00:00 128/92 95 06/19/20 23:45 152/77 95 06/19/20 23:30 103 H 14 128/92 94 06/19/20 23:15 104 H 21 152/77 94 06/19/20 23:11 103 H 22 152/77 95 06/19/20 23:01 105 H 24 154/86 96 06/19/20 22:15 154/86 97 06/19/20 22:00 105 H 29 H 154/86 95 06/19/20 21:45 102 H 27 H 155/93 97 06/19/20 21:30 104 H 26 H 155/93 99 06/19/20 21:23 98.6 F 06/19/20 21:19 101 H 22 142/69 95 06/19/20 19:45 113 H 25 H 142/69 94 06/19/20 19:00 105 H 22 142/69 95 06/19/20 18:42 104 H 17 125/81 95 06/19/20 18:15 92 06/19/20 18:01 96 06/19/20 17:45 95 06/19/20 17:31 94 01/20/21 17:15 96 06/19/20 17:01 96 06/19/20 16:45 96 06/19/20 16:32 95 06/19/20 16:15 96 06/19/20 16:01 95 06/19/20 15:45 91 06/19/20 15:31 95 06/19/20 15:15 95 06/19/20 15:01 107 H 96 06/19/20 14:45 92 06/19/20 14:31 95 - Physical Examination General: No Apparent Distress HEENT: Positive: PERRL Neck: Positive: trachea midline Cardiac: Positive: Reg Rate and Rhythm Lungs: Positive: Decreased Breath Sounds Neuro: Positive: Grossly Intact Extremities: Present: +1 Edema - Labs and Meds Comprehensive Metabolic Panel 06/20/20 Range/Units 05:24 Sodium 144 (137-145) mmol/L Potassium 4.5 (3.6-5.0) mmol/L Chloride 106.2 (98-107) mmol/L Carbon Dioxide 28 (22-30) mmol/L BUN 14 (9-20) mg/dL Creatinine 0.8 (0.8-1.3) mg/dL Glucose 130 H (75-100) mg/dL Calcium 10.1 (8.4-10.2) mg/dL
[2020-06-20] MEDS: risperiDONE 0.25 MG TAB PO SCH ×2 (12:17→21:01)
[2020-06-20 12:41] LABS: Amphetamine Screen,Urine Negative; Benzodiazepines Screen,Urine Negative; Cannabinoid Screen,Urine Negative; Methadone Screen,Urine Negative; Opiate Screen,Urine Negative
[2020-06-20] MEDS: DIVALPROEX DR 125 MG TAB PO SCH ×2 (12:47→21:01)
[2020-06-20 13:42] LABS: Cocaine Screen,Urine PRESUMPTIVE POSITIVE
--- NOTE | 2020-06-20 14:06 | Progress Note ---
Assessment and Plan Acute respiratory failure Acute congestive heart failure Suspected COVID-19 virus infection - ACS w/up ongoing - he will benefit from sleep clinic evaluation - diuresis while monitoring electrolytes per cardiology rec's - discontinue systemic steroids if COVID test negative - continue to wean supplemental oxygen to keep O2 sats > 92% - prn Bronchodilators (BETTY) with pulm hygiene per RT - avoid nephrotoxins, renally dose all medications - mobility protocols to prevent pressure ulcers - PT/OT as tolerated - Wound care per RN/WCT - accuchecks with glycemic control per SSI for target blood glucose < 180 mg/dL - Smoking cessation strongly counseled at the bedside - home oxygen evaluation at discharge - GI & VTE prophylaxis - Flu & pneumovax per protocol - Pulmonary out patient follow up for optimization of respiratory status - prn analgesia per pain score - continue other care per attending / other consultants ... re-evaluate in am & prn Subjective Date of service: 06/20/20 Principal diagnosis: PUI COVID-19; Acute Hypoxemic Respiratory Failure; AE-CHF Interval history: Patient is seen today for: Acute respiratory failure; Acute congestive heart failure; Suspected COVID-19 virus infection Seen and examined at bedside; 24hour events reviewed; nursing and respiratory care staff consulted; no adverse overnight events reported to me; resting peacefully in bed; remains on supplemental oxygen; feels better; no chest pain; denies N/V/F/C; denies a h/o MIHIR but has not been tested Objective Vital Signs - 12hr 06/20/20 06/20/20 06/20/20 02:15 02:31 02:45 Temperature Pulse Rate Respiratory Rate Blood Pressure 155/100 155/100 155/100 O2 Sat by Pulse 95 94 94 Oximetry 06/20/20 06/20/20 06/20/20 03:00 03:15 03:31 Temperature Pulse Rate Respiratory Rate Blood Pressure 154/91 154/91 154/91 O2 Sat by Pulse 94 93 98 Oximetry 06/20/20 06/20/20 06/20/20 03:45 03:51 04:01 Temperature Pulse Rate 99 H 99 H 100 H Respiratory 18 16 16 Rate Blood Pressure 154/91 154/91 126/75 O2 Sat by Pulse 94 94 94 Oximetry 06/20/20 06/20/20 06/20/20 04:11 04:21 04:31 Temperature Pulse Rate 101 H 102 H Respiratory 15 18 Rate Blood Pressure 126/75 126/75 126/75 O2 Sat by Pulse 95 96 94 Oximetry 06/20/20 06/20/20 06/20/20 04:41 04:51 05:00 Temperature Pulse Rate Respiratory Rate Blood Pressure 126/75 126/75 152/100 O2 Sat by Pulse 98 96 95 Oximetry 06/20/20 06/20/20 06/20/20 05:11 05:21 05:31 Temperature Pulse Rate 102 H 101 H 105 H Respiratory 17 16 19 Rate Blood Pressure 152/100 152/100 152/100 O2 Sat by Pulse 96 95 95 Oximetry 06/20/20 06/20/20 06/20/20 05:41 05:51 06:01 Temperature Pulse Rate 102 H 97 H 105 H Respiratory 13 14 15 Rate Blood Pressure 152/100 152/100 204/150 O2 Sat by Pulse 97 96 97 Oximetry 06/20/20 06/20/20 06/20/20 06:11 06:21 06:31 Temperature Pulse Rate 106 H 109 H 107 H Respiratory 20 10 L 18 Rate Blood Pressure 147/111 147/111 164/114 O2 Sat by Pulse 95 98 97 Oximetry 06/20/20 06/20/20 06/20/20 06:41 06:51 07:00 Temperature Pulse Rate 111 H 105 H 106 H Respiratory 20 18 Rate Blood Pressure 164/114 152/110 148/103 O2 Sat by Pulse 98 96 97 Oximetry 06/20/20 06/20/20 06/20/20 07:11 07:21 07:31 Temperature Pulse Rate 112 H 106 H 115 H Respiratory 24 Rate Blood Pressure 148/103 148/103 148/103 O2 Sat by Pulse 97 97 95 Oximetry 06/20/20 06/20/20 06/20/20 07:41 07:51 08:01 Temperature Pulse Rate 112 H 107 H 106 H Respiratory 21 20 15 Rate Blood Pressure 148/103 148/103 148/103 O2 Sat by Pulse 96 97 96 Oximetry 06/20/20 06/20/20 06/20/20 08:11 08:25 08:30 Temperature Pulse Rate 115 H 108 H Respiratory 23 19 Rate Blood Pressure 148/103 148/103 161/100 O2 Sat by Pulse 97 79 L 97 Oximetry 06/20/20 06/20/20 09:14 10:58 Temperature 98.3 F Pulse Rate 109 H Respiratory 18 Rate Blood Pressure 144/98 O2 Sat by Pulse 96 94 Oximetry Constitutional: no acute distress, alert, other (elderly obese male with mildly increased respiratory effort at rest) Eyes: non-icteric ENT: oropharynx moist, other (mallampati 3-4) Neck: supple, no JVD Effort: mildly labored Ascultation: Bilateral: clear, diminished breath sounds Percussion: Bilateral: not dull Cardiovascular: regular rate and rhythm Gastrointestinal: normoactive bowel sounds, soft, non-tender, non-distended (protuberant) Integumentary: normal Extremities: no cyanosis, no edema, pulses normal, no ischemia or petechiae Neurologic: normal mental status, non-focal exam, pupils equal and round, CN II- XII normal Psychiatric: mood appropriate, affect normal CBC and BMP: 06/21/20 04:49 06/21/20 04:49 ABG, PT/INR, D-dimer: PT/INR, D-dimer D-Dimer 1022.01 ng/mlDDU (0-234) H 06/19/20 08:15 Abnormal lab findings: Abnormal Labs 06/19/20 06/19/20 06/19/20 07:04 07:04 07:04 MCV 100 H MCH 33 H Eos % (Auto) 4.6 H D-Dimer Glucose 110 H NT-Pro-B Natriuret Pep 1202 H 06/19/20 06/19/20 06/20/20 08:15 08:49 05:24 MCV MCH Eos % (Auto) D-Dimer 1022.01 H Glucose 136 H 130 H NT-Pro-B Natriuret Pep Chest x-ray: other (none today) Allied health notes reviewed: nursing
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
[2020-06-20] MEDS: traZODone 50 MG TAB PO SCH (21:01)
[2020-06-21 06:23] LABS: Basophils % (Auto) 0.1 % (0.0-1.8); Eosinophils % (Auto) 0.3 % (0.0-4.3); Hematocrit 42.4 % (35.5-45.6); Hemoglobin 13.8 gm/dl (11.8-15.2); Lymphocytes % (Auto) 14.9 % (13.4-35.0); Mean Corpuscular HGB Conc 33 % (32-34); Mean Corpuscular Volume 100 fl (84-94); Monocytes # (Auto) 0.7 K/mm3 (0.0-0.8); Monocytes % (Auto) 5.4 % (0.0-7.3); Platelet Count 259 K/mm3 (140-440); Red Blood Count 4.25 M/mm3 (3.65-5.03); Red Cell Distribution Width 14.2 % (13.2-15.2)
[2020-06-21 06:32] LABS: Partial Thromboplastin Time 28.4 Sec. (24.2-36.6)
[2020-06-21 07:06] LABS: BUN/Creatinine Ratio 19; Blood Urea Nitrogen 19 mg/dL (9-20); Calcium 9.5 mg/dL (8.4-10.2); Hemolysis Index 11
[2020-06-21] MEDS: FAMOTIDINE 20 MG TAB PO SCH ×2 (10:00→21:18)
[2020-06-21] MEDS: risperiDONE 0.25 MG TAB PO SCH ×2 (10:01→21:18)
[2020-06-21] MEDS: ASPIRIN EC 81 MG TAB PO SCH (10:01)
[2020-06-21] MEDS: LISINOPRIL 5 MG TAB PO SCH (10:01)
[2020-06-21] MEDS: SPIRONOLACTONE 25 MG TAB PO SCH (10:02)
[2020-06-21] MEDS: carvediloL 6.25 MG TAB PO SCH ×2 (10:03→21:18)
[2020-06-21] MEDS: FUROSEMIDE 40 MG/4 ML INJ IV SCH ×2 (10:04→19:32)
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
--- NOTE | 2020-06-21 11:13 | Progress Note ---
Assessment and Plan Cultures: Blood culture no growth today SARS CoV2 PCR negative SARS Cov2 IgG negative Assessment: 60 years old male with history of hypertension, chronic back pain, bipolar depression, cocaine, marijuana and meth abuse, tobacco abuse, admitted on 06/19/2020 secondary to a month history of dry cough associated with subjective fever, generalized malaise: #Severe sepsis: Present on admission with tachycardia, hypotension, hypoxia; likely due to bilateral pneumonia. #Bilateral pneumonia versus volume overload: SARS-CoV-2 PCR negative. Noted mildly elevated proBNP. Procalcitonin is low, doubt bacterial component. #Acute hypoxemic respiratory failure: Now on BiPAP. Likely secondary to bilateral pneumonia +/- volume overload #Bipolar depression #Polysubstance abuse #Aggressive behavior: patient very upset today, multiple profanities against my person, told me to "FUCK OFF" and come back after I have moved him to a non- Covid unit. Patient was under the belief that we were keeping him in the Covid unit to infect him. Patient also reported that the air was carrying Covid and i nfecting him. He was also counting the hours since he was told that he would be moved to the non-Covid unit. 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 Unable to perform physical exam. Recommendations: -Discussed with attending Dr Campbell -Needs to rule out PE and DVT elevated D-dimer -No need for steroids -Monitor off antibiotics, procalcitonin is low will sign off please call us if any question Mis Ferrer MD Infectious Diseases [employer] [facility] M [phone] O [phone] Subjective Date of service: 06/21/20 Principal diagnosis: PUI COVID-19; Acute Hypoxemic Respiratory Failure; AE-CHF Interval history: Patient very upset, multiple profanities against my person, told me to "FUCK OFF" and come back after have moved into a non-Covid unit. Patient is under the belief that we are keeping him in the Covid unit to infect him. Patient also reported that air carrying the Covid and infecting him. He is also counting the hours and he was told that he will be moved to the non-Covid unit. Patient did not allow me to explain. Objective - Exam Narrative Exam: Unable to perform due to verbal abuse - Constitutional Vitals: Vital Signs Temp Pulse Resp BP Pulse Ox 97.3 F L 104 H 16 160/110 95 06/21/20 05:25 06/21/20 10:01 06/21/20 05:25 06/21/20 10:01 06/21/20 10:27 Temperature -Last 24 Hours Temperature 97.3 F Temperature 97.9 F Temperature 98.0 F - Labs CBC & Chem 7: 06/21/20 04:49 06/21/20 04:49 Labs: Abnormal lab results 06/20/20 06/20/20 06/21/20 Range/Units 18:39 20:30 04:49 WBC 13.6 H (4.5-11.0) K/mm3 MCV 100 H (84-94) fl Seg Neutrophils % 79.3 H (40.0-70.0) % Seg Neutrophils # 10.8 H (1.8-7.7) K/mm3 Carbon Dioxide (22-30) mmol/L Glucose (75-100) mg/dL POC Glucose 163 H 112 H (70-105) mg/dL 06/21/20 Range/Units 04:49 WBC (4.5-11.0) K/mm3 MCV (84-94) fl Seg Neutrophils % (40.0-70.0) % Seg Neutrophils # (1.8-7.7) K/mm3 Carbon Dioxide 32 H (22-30) mmol/L Glucose 105 H (75-100) mg/dL POC Glucose (70-105) mg/dL
[2020-06-21] MEDS: DIVALPROEX DR 125 MG TAB PO SCH ×2 (11:17→22:30)
[2020-06-21] MEDS: ENOXAPARIN 40 MG/0.4 ML INJ SUB-Q SCH (14:00)
[2020-06-21] MEDS ORDERED: fentaNYL 100 MCG/2 ML INJ ONE ×2 (14:21→16:25)
[2020-06-21] MEDS ORDERED: MIDAZOLAM 2 MG/2 ML INJ ONE (14:21)
[2020-06-21] MEDS ORDERED: SODIUM CHLORIDE 0.9% 500 ML 500 ML ONE (14:22)
[2020-06-21] MEDS ORDERED: HEPARIN 10,000 UNITS/10 ML VIAL ONE (14:22)
[2020-06-21] MEDS ORDERED: HEPARIN/NS 5000 UNIT/500ML 1,000 ML IR ONE (14:22)
[2020-06-21] MEDS ORDERED: NITROGLYCERIN SYRINGE 3 ML ONE (14:23)
[2020-06-21] MEDS ORDERED: LIDOCAINE (2%) 20 MG/1 ML VIAL 20 ML MDV INFILTRATI ONE (14:23)
[2020-06-21] MEDS ORDERED: VERAPAMIL 5 MG/2 ML INJ ONE (14:24)
[2020-06-21] MEDS ORDERED: HYDROcodone/ACETAMINOPHEN 5-325 MG TAB PO PRN (14:58)
[2020-06-21] MEDS ORDERED: traMADol 50 MG TAB PO PRN (14:58)
--- NOTE | 2020-06-21 14:58 | Progress Note ---
Assessment and Plan Impression: Acute CHF, new onset New onset dialted cardiomyopathy non ischemic Pulmonary hypertension SOB Pneumonia Morbid obesity Hypertension Poly-substance abuse Echo this admission: EF 25-30% Moderate pulmonary HTN Cardiac cath today: Non ischemic cardiomyopathy Recommendations: Advised sodium and fluid restriction. Continue coreg/lisinopril and lasix Rest per primnary team Subjective Date of service: 06/21/20 Principal diagnosis: PUI COVID-19; Acute Hypoxemic Respiratory Failure; AE-CHF Interval history: No significant events Tolerated left heart cath well Objective Vital Signs Temp Pulse Resp BP Pulse Ox 06/21/20 11:40 97 06/21/20 11:28 97.5 F L 101 H 18 118/82 96 06/21/20 10:27 95 06/21/20 10:01 104 H 160/110 06/21/20 05:25 97.3 F L 102 H 16 121/74 95 06/20/20 22:00 18 99 06/20/20 21:24 99 06/20/20 20:35 97.9 F 97 H 18 119/74 95 06/20/20 18:00 161/100 94 06/20/20 17:55 98.0 F 96 H 18 140/93 90 - Physical Examination General: No Apparent Distress, Other (Moderately obese ) HEENT: Positive: PERRL Neck: Positive: trachea midline Cardiac: Positive: Reg Rate and Rhythm Lungs: Positive: clear to auscultation Neuro: Positive: Grossly Intact Abdomen: Positive: Soft Extremities: Present: +1 Edema - Labs and Meds Coagulation 06/21/20 Range/Units 04:49 PT 13.1 (12.2-14.9) Sec. INR 1.00 (0.87-1.13) APTT 28.4 (24.2-36.6) Sec. CBC 06/21/20 Range/Units 04:49 WBC 13.6 H (4.5-11.0) K/mm3 RBC 4.25 (3.65-5.03) M/mm3 Hgb 13.8 (11.8-15.2) gm/dl Hct 42.4 (35.5-45.6) % Plt Count 259 (140-440) K/mm3 Lymph # (Auto) 2.0 (1.2-5.4) K/mm3 Price # (Auto) 0.7 (0.0-0.8) K/mm3 Eos # (Auto) 0.0 (0.0-0.4) K/mm3 Baso # (Auto) 0.0 (0.0-0.1) K/mm3 Comprehensive Metabolic Panel 06/21/20 Range/Units 04:49 Sodium 142 (137-145) mmol/L Potassium 4.2 (3.6-5.0) mmol/L Chloride 103.2 (98-107) mmol/L Carbon Dioxide 32 H (22-30) mmol/L BUN 19 (9-20) mg/dL Creatinine 1.0 (0.8-1.3) mg/dL Glucose 105 H (75-100) mg/dL Calcium 9.5 (8.4-10.2) mg/dL
--- NOTE | 2020-06-21 15:04 | Progress Note ---
Assessment and Plan Acute respiratory failure Acute congestive heart failure Suspected COVID-19 virus infection - ACS w/up ongoing - he will benefit from sleep clinic evaluation - diuresis while monitoring electrolytes per cardiology rec's - discontinue systemic steroids if COVID test negative - continue to wean supplemental oxygen to keep O2 sats > 92% - prn Bronchodilators (BETTY) with pulm hygiene per RT - avoid nephrotoxins, renally dose all medications - mobility protocols to prevent pressure ulcers - PT/OT as tolerated - Wound care per RN/WCT - accuchecks with glycemic control per SSI for target blood glucose < 180 mg/dL - Smoking cessation strongly counseled at the bedside - home oxygen evaluation at discharge - GI & VTE prophylaxis - Flu & pneumovax per protocol - Pulmonary out patient follow up for optimization of respiratory status - prn analgesia per pain score - continue other care per attending / other consultants ... re-evaluate in am & prn Subjective Date of service: 06/21/20 Principal diagnosis: PUI COVID-19; Acute Hypoxemic Respiratory Failure; AE-CHF Interval history: Patient is seen today for: Acute respiratory failure; Acute congestive heart failure; Suspected COVID-19 virus infection Seen and examined at bedside; 24hour events reviewed; nursing and respiratory care staff consulted; no adverse overnight events reported to me; resting peacefully in bed; Objective Vital Signs - 12hr 06/21/20 06/21/20 06/21/20 05:25 10:01 10:27 Temperature 97.3 F L Pulse Rate 102 H 104 H Respiratory 16 Rate Blood Pressure 121/74 160/110 O2 Sat by Pulse 95 95 Oximetry 06/21/20 06/21/20 11:28 11:40 Temperature 97.5 F L Pulse Rate 101 H Respiratory 18 Rate Blood Pressure 118/82 O2 Sat by Pulse 96 97 Oximetry Constitutional: no acute distress, alert, other (elderly obese male with mildly increased respiratory effort at rest) Eyes: non-icteric ENT: oropharynx moist, other (mallampati 3-4) Neck: supple, no JVD Effort: mildly labored Ascultation: Bilateral: clear, diminished breath sounds Percussion: Bilateral: not dull Cardiovascular: regular rate and rhythm Gastrointestinal: normoactive bowel sounds, soft, non-tender, non-distended (protuberant) Integumentary: normal Extremities: no cyanosis, no edema, pulses normal, no ischemia or petechiae Neurologic: normal mental status, non-focal exam, pupils equal and round, CN II- XII normal Psychiatric: mood appropriate, affect normal CBC and BMP: 06/21/20 04:49 06/21/20 04:49 ABG, PT/INR, D-dimer: PT/INR, D-dimer PT 13.1 Sec. (12.2-14.9) 06/21/20 04:49 INR 1.00 (0.87-1.13) 06/21/20 04:49 D-Dimer 1022.01 ng/mlDDU (0-234) H 06/19/20 08:15 Abnormal lab findings: Abnormal Labs 06/19/20 06/19/20 06/19/20 07:04 07:04 07:04 WBC MCV 100 H MCH 33 H Eos % (Auto) 4.6 H Seg Neutrophils % Seg Neutrophils # D-Dimer Carbon Dioxide Glucose 110 H POC Glucose NT-Pro-B Natriuret Pep 1202 H 06/19/20 06/19/20 06/20/20 08:15 08:49 05:24 WBC MCV MCH Eos % (Auto) Seg Neutrophils % Seg Neutrophils # D-Dimer 1022.01 H Carbon Dioxide Glucose 136 H 130 H POC Glucose NT-Pro-B Natriuret Pep 06/20/20 06/20/20 06/21/20 18:39 20:30 04:49 WBC 13.6 H MCV 100 H MCH Eos % (Auto) Seg Neutrophils % 79.3 H Seg Neutrophils # 10.8 H D-Dimer Carbon Dioxide Glucose POC Glucose 163 H 112 H NT-Pro-B Natriuret Pep 06/21/20 04:49 WBC MCV MCH Eos % (Auto) Seg Neutrophils % Seg Neutrophils # D-Dimer Carbon Dioxide 32 H Glucose 105 H POC Glucose NT-Pro-B Natriuret Pep Allied health notes reviewed: nursing
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
--- NOTE | 2020-06-21 15:58 | Progress Note ---
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 Administration
[2020-06-21] MEDS ORDERED: SODIUM CHLORIDE 0.9% 1000 ML 1,000 ML IV SCH (16:00)
--- NOTE | 2020-06-21 17:52 | Cardiac Catherization Report ---
CORONARY ANGIOGRAM REPORT REFERRING PHYSICIAN: Jaimee Campbell MD. INDICATION: New onset cardiomyopathy. SEDATION DETAILS: Moderate sedation with IV Versed and fentanyl was given under my direct supervision. Versed and fentanyl was given by a trained personnel and continuous hemodynamic monitoring was continued. MODERATE SEDATION START TIME: 14:39 MODERATE SEDATION END TIME: 14:51 TOTAL SEDATION: 12 minutes PROCEDURE DETAILS: 1. The patient was prepped and draped in a sterile fashion after informed consent. 2. The right groin was anesthetized using local Lidocaine infiltration. 3. The right radial artery was entered using the Seldinger technique, followed by the placement of a 6-[place] sheath. 4. Selective left and right coronary angiography was performed using 6-[place] Rigoberto catheters. Angiograms were done in multiple projections. 5. Selective left ventricular angiography was done using a 6-[place] pigtail catheter. Left ventricular angiography was performed in the right anterior oblique projection. 6. The catheters were withdrawn, the sheath removed, and hemostasis was achieved. 7. The patient was transferred to the post cardiac catheterization unit in stable condition. There were no complications, equipment malfunction, or technical difficulties. FINDINGS: 1. Hemodynamics: AO 118/74, LV 120/30. 2. LVEDP is 30. 3. Left ventriculogram showed dilated LVEF around 25%-30%. ANGIOGRAM DETAILS: 1. Left main is angiographically normal. 2. LAD has mild luminal irregularities. 3. Circumflex has mild luminal irregularities. 4. The RCA is a large caliber dominant artery with mild vascular ectasia. No significant stenosis. IMPRESSION: 1. Ectatic right coronary artery with no significant stenosis. 2. Reduced LV systolic function, suggestive of a nonischemic cardiomyopathy. PLAN: 1. Aggressive risk factor modification. 2. Aggressive medical management of nonischemic cardiomyopathy. 3. Routine radial artery sheath care. JOB# [id number] RR/NTS
[2020-06-21] MEDS: traZODone 50 MG TAB PO SCH (21:18)
[2020-06-22 06:27] LABS: Hematocrit 42.8 % (35.5-45.6); Hemoglobin 13.9 gm/dl (11.8-15.2); Mean Corpuscular HGB Conc 33 % (32-34); Mean Corpuscular Volume 100 fl (84-94); Platelet Count 228 K/mm3 (140-440); Red Blood Count 4.27 M/mm3 (3.65-5.03); Red Cell Distribution Width 13.9 % (13.2-15.2)
[2020-06-22] MEDS: FUROSEMIDE 40 MG/4 ML INJ IV SCH ×2 (06:43→19:11)
[2020-06-22 06:44] LABS: BUN/Creatinine Ratio 24; Blood Urea Nitrogen 24 mg/dL (9-20); Calcium 8.9 mg/dL (8.4-10.2); Hemolysis Index 22
--- NOTE | 2020-06-22 08:13 | Progress Note ---
Subjective - Reason for Consult Consult date: 06/22/20 Reason for consult: MHE Requesting physician: RASHID DESHPANDE - Chief Complaint Chief complaint: Psych Progress Note Patient seen in room, appears mildly confused, laughs hysterically to own comments, when asked if he hears voices, patients reports the lady in his head is writing down my name on a book now. Nurse notes shows intermittent confusion. REVIEW OF SYSTEMS Constitutional: Negative for weight loss ENT: Negative for stridor Respiratory: Negative for cough or hemoptysis All other systems reviewed and are negative MENTAL STATUS EXAMINATION General Appearance and Behavior: Age appropriate, fair good hygiene, wearing appropriate clothes, good eye contact, uncooperative Cooperation: cooperative Psychomotor Behavior: guarded Mood: depressed, paranoid Affect and affective range: Congruent with stated mood Thought Process: illogical Thought Content: paranoia, delusions Speech: normal tone and pace Suicidal Ideation: Intermittent Homicidal Ideation: Yes, passive Hallucinations: Auditory Delusions: yes, paranoid Impulse Control: Impaired Insight and Judgment: Impaired insight and judgment Memory: Limited Attention: Impaired Orientation: Alert, oriented Assessment and Plan - Patient Problems (1) Schizophrenia, paranoid type Current Visit: Yes Status: Acute Treatment Plan Will start patient on risperidone. MEDICATIONS: Risks, benefits and alternatives of medications discussed with the patient, questions answered and consent obtained from patient. PSYCHOTHERAPY: Supportive psychotherapy provided MEDICAL: Per primary team DELIRIUM PRECAUTIONS: Please re-orient patient frequently, keep lights on during the day, and minimize benzodiazepines and opiates as these medications could worsen patient's confusion. 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 Case discussed with Dr. Arboleda who agrees with current disposition LEGAL STATUS: 1013 FOLLOW-UP: Will follow Thank you for the consult. Please contact with any questions and/or concerns. Mental Status Exam - Vital signs Last Vital Signs Temp 98.5 F 06/22/20 03:28 Pulse 89 06/22/20 03:28 Resp 16 06/22/20 03:28 BP 122/80 06/22/20 03:28 Pulse Ox 96 06/22/20 03:28 Assessment and Plan - Patient Problems (1) Schizophrenia, paranoid type Current Visit: Yes Status: Acute
[2020-06-22] MEDS: FLUoxetine 10 MG TAB PO SCH (09:54)
[2020-06-22] MEDS: risperiDONE 0.25 MG TAB PO SCH ×2 (09:54→21:38)
[2020-06-22] MEDS: FAMOTIDINE 20 MG TAB PO SCH ×2 (09:54→21:39)
[2020-06-22] MEDS: ASPIRIN EC 81 MG TAB PO SCH (09:54)
[2020-06-22] MEDS: LISINOPRIL 5 MG TAB PO SCH (09:54)
[2020-06-22] MEDS: ENOXAPARIN 40 MG/0.4 ML INJ SUB-Q SCH (09:54)
[2020-06-22] MEDS: carvediloL 6.25 MG TAB PO SCH ×2 (09:55→21:39)
[2020-06-22] MEDS: SPIRONOLACTONE 25 MG TAB PO SCH (09:55)
[2020-06-22] MEDS: DIVALPROEX DR 125 MG TAB PO SCH ×2 (19:10→21:39)
[2020-06-22] MEDS: traZODone 50 MG TAB PO SCH (21:39)
[2020-06-23] MEDS: FUROSEMIDE 40 MG/4 ML INJ IV SCH ×2 (06:11→17:03)
--- NOTE | 2020-06-23 08:10 | Progress Note ---
Subjective - Reason for Consult Consult date: 06/23/20 Reason for consult: MHE Requesting physician: RASHID DESHPANDE - Chief Complaint Chief complaint: Psych Progress Note Patient seen today, appears a bit somnolent, says meds he takes drowns him sometimes. Patient reports he is sad becasue of his x , he reports she had called to ask if his truck was okay and she can come get and not him. Patient states today he is not hearing voices and laughs again. Denies acute SI/HI but endorses want psychiatric help and intervention. REVIEW OF SYSTEMS Constitutional: Negative for weight loss ENT: Negative for stridor Respiratory: Negative for cough or hemoptysis All other systems reviewed and are negative MENTAL STATUS EXAMINATION General Appearance and Behavior: Age appropriate, fair good hygiene, wearing appropriate clothes, good eye contact, uncooperative Cooperation: cooperative Psychomotor Behavior: guarded Mood: depressed, paranoid Affect and affective range: Congruent with stated mood Thought Process: illogical Thought Content: paranoia, delusions Speech: normal tone and pace Suicidal Ideation: Intermittent Homicidal Ideation: Yes, passive Hallucinations: Auditory Delusions: yes, paranoid Impulse Control: Impaired Insight and Judgment: Impaired insight and judgment Memory: Limited Attention: Impaired Orientation: Alert, oriented Assessment and Plan - Patient Problems (1) Schizophrenia, paranoid type Current Visit: Yes Status: Acute Treatment Plan Will start patient on risperidone. MEDICATIONS: Risks, benefits and alternatives of medications discussed with the patient, questions answered and consent obtained from patient. PSYCHOTHERAPY: Supportive psychotherapy provided MEDICAL: Per primary team DELIRIUM PRECAUTIONS: Please re-orient patient frequently, keep lights on during the day, and minimize benzodiazepines and opiates as these medications could worsen patient's confusion. 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 Case discussed with Dr. Arboleda who agrees with current disposition LEGAL STATUS: 1013 FOLLOW-UP: Will follow Thank you for the consult. Please contact with any questions and/or concerns. Mental Status Exam - Vital signs Last Vital Signs Temp 97.8 F 06/22/20 23:21 Pulse 88 06/22/20 23:21 Resp 18 06/22/20 23:21 BP 104/75 06/22/20 23:21 Pulse Ox 99 06/23/20 08:04 Assessment and Plan - Patient Problems (1) Schizophrenia, paranoid type Current Visit: Yes Status: Acute
[2020-06-23] MEDS: ENOXAPARIN 40 MG/0.4 ML INJ SUB-Q SCH (09:29)
[2020-06-23] MEDS: FLUoxetine 10 MG TAB PO SCH (09:30)
[2020-06-23] MEDS: risperiDONE 0.25 MG TAB PO SCH ×2 (09:30→22:16)
[2020-06-23] MEDS: FAMOTIDINE 20 MG TAB PO SCH ×2 (09:30→22:16)
[2020-06-23] MEDS: LISINOPRIL 5 MG TAB PO SCH (09:30)
[2020-06-23] MEDS: SPIRONOLACTONE 25 MG TAB PO SCH (09:31)
[2020-06-23] MEDS: DIVALPROEX DR 125 MG TAB PO SCH ×2 (09:31→22:16)
[2020-06-23] MEDS: ASPIRIN EC 81 MG TAB PO SCH (09:31)
[2020-06-23] MEDS: carvediloL 6.25 MG TAB PO SCH ×2 (09:31→22:16)
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
--- NOTE | 2020-06-23 15:33 | Progress Note ---
Assessment and Plan Patient sleeping on room air. O2 saturation 96%. No acute respiratory distress. Patient afebrile. No leukocytosis. - Patient Problems (1) Acute respiratory failure Current Visit: Yes Status: Acute Plan to address problem: Improved. Patient presently on room air. Albuterol inhaler 2 puffs po qid prn for shortness of breath. Patient presently on , S/C Lovenox, Famotidine. (2) Acute congestive heart failure Current Visit: Yes Status: Acute Plan to address problem: Patient is on Lasix. Management as per primary care and cardiology. (3) Suspected COVID-19 virus infection Current Visit: Yes Status: Acute Plan to address problem: COvid 19 antibodies negative. COVID 19 PCR reported negative. Subjective Date of service: 06/22/20 Principal diagnosis: PUI COVID-19; Acute Hypoxemic Respiratory Failure; AE-CHF Interval history: Patient sleeping on room air. O2 saturation 96%. No acute respiratory distress. Patient afebrile. No leukocytosis. Objective Vital Signs - 12hr 06/23/20 06/23/20 06/23/20 04:14 08:00 08:04 Temperature 97.6 F Pulse Rate 81 Respiratory 18 18 Rate Blood Pressure 114/80 Blood Pressure [Right] O2 Sat by Pulse 95 99 Oximetry 06/23/20 06/23/20 06/23/20 08:35 09:30 09:31 Temperature 98.0 F Pulse Rate 98 H 98 H 98 H Respiratory 20 Rate Blood Pressure 138/101 138/101 Blood Pressure 138/101 [Right] O2 Sat by Pulse 95 Oximetry 06/23/20 12:03 Temperature 98.0 F Pulse Rate 72 Respiratory 20 Rate Blood Pressure Blood Pressure 138/98 [Right] O2 Sat by Pulse 98 Oximetry Constitutional: no acute distress, asleep, other (elderly obese male with mildly increased respiratory effort at rest) Eyes: non-icteric ENT: oropharynx moist, other (mallampati 3-4) Neck: supple, no JVD Effort: mildly labored Ascultation: Bilateral: diminished breath sounds Percussion: Bilateral: not dull Cardiovascular: regular rate and rhythm Gastrointestinal: normoactive bowel sounds, soft, non-tender, non-distended (protuberant) Integumentary: normal Extremities: no cyanosis, no edema, pulses normal, no ischemia or petechiae Neurologic: normal mental status, non-focal exam, pupils equal and round, CN II- XII normal Psychiatric: mood appropriate, affect normal CBC and BMP: 06/22/20 06:00 06/22/20 06:00 ABG, PT/INR, D-dimer: PT/INR, D-dimer PT 13.1 Sec. (12.2-14.9) 06/21/20 04:49 INR 1.00 (0.87-1.13) 06/21/20 04:49 D-Dimer 1022.01 ng/mlDDU (0-234) H 06/19/20 08:15 Abnormal lab findings: Abnormal Labs 06/19/20 06/19/20 06/19/20 07:04 07:04 07:04 WBC MCV 100 H MCH 33 H Eos % (Auto) 4.6 H Seg Neutrophils % Seg Neutrophils # D-Dimer Carbon Dioxide BUN Glucose 110 H POC Glucose NT-Pro-B Natriuret Pep 1202 H 06/19/20 06/19/20 06/20/20 08:15 08:49 05:24 WBC MCV MCH Eos % (Auto) Seg Neutrophils % Seg Neutrophils # D-Dimer 1022.01 H Carbon Dioxide BUN Glucose 136 H 130 H POC Glucose NT-Pro-B Natriuret Pep 06/20/20 06/20/20 06/21/20 18:39 20:30 04:49 WBC 13.6 H MCV 100 H MCH Eos % (Auto) Seg Neutrophils % 79.3 H Seg Neutrophils # 10.8 H D-Dimer Carbon Dioxide BUN Glucose POC Glucose 163 H 112 H NT-Pro-B Natriuret Pep 06/21/20 06/22/20 06/22/20 04:49 06:00 06:00 WBC MCV 100 H MCH 33 H Eos % (Auto) Seg Neutrophils % Seg Neutrophils # D-Dimer Carbon Dioxide 32 H BUN 24 H Glucose 105 H POC Glucose NT-Pro-B Natriuret Pep Allied health notes reviewed: nursing
[2020-06-23] MEDS: traZODone 50 MG TAB PO SCH (22:16)
[2020-06-24] MEDS: FUROSEMIDE 40 MG/4 ML INJ IV SCH ×2 (06:32→17:03)
--- NOTE | 2020-06-24 08:55 | Progress Note ---
Subjective - Reason for Consult Consult date: 06/24/20 Reason for consult: MHE Requesting physician: TRINO SAINI - Chief Complaint Chief complaint: Floor Nurse Note: Attempted times two to give pt his meds this shift and pt re fused. Stating he was not taking any medication tonight. Dr Roy made aware. continue to monitor. Psych Progress Note Patient seen this AM, heard talking on phone with family member talking about hearing voices, patient informed me he still hears voices, and has been dealing with paranoia, always thinking other people are up to something and that bothers him much. He denies depression or acute SI/HI. REVIEW OF SYSTEMS Constitutional: Negative for weight loss ENT: Negative for stridor Respiratory: Negative for cough or hemoptysis All other systems reviewed and are negative MENTAL STATUS EXAMINATION General Appearance and Behavior: Age appropriate, fair good hygiene, wearing appropriate clothes, good eye contact, uncooperative Cooperation: cooperative Psychomotor Behavior: guarded Mood: depressed, paranoid Affect and affective range: Congruent with stated mood Thought Process: illogical Thought Content: paranoia, delusions Speech: normal tone and pace Suicidal Ideation: Intermittent Homicidal Ideation: Yes, passive Hallucinations: Auditory Delusions: yes, paranoid Impulse Control: Impaired Insight and Judgment: Impaired insight and judgment Memory: Limited Attention: Impaired Orientation: Alert, oriented Assessment and Plan - Patient Problems (1) Schizophrenia, paranoid type Current Visit: Yes Status: Acute Treatment Plan Patient on fluoxetin and Olazanpine, doses adjusted and increased today. MEDICATIONS: Risks, benefits and alternatives of medications discussed with the patient, questions answered and consent obtained from patient. PSYCHOTHERAPY: Supportive psychotherapy provided MEDICAL: Per primary team DELIRIUM PRECAUTIONS: Please re-orient patient frequently, keep lights on during the day, and minimize benzodiazepines and opiates as these medications could worsen patient's confusion. 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 Case discussed with Dr. Arboleda who agrees with current disposition LEGAL STATUS: 1013 FOLLOW-UP: Will follow Thank you for the consult. Please contact with any questions and/or concerns. Mental Status Exam - Vital signs Last Vital Signs Temp 97.5 F L 06/24/20 03:38 Pulse 91 H 06/24/20 03:38 Resp 18 06/24/20 07:57 BP 105/71 06/24/20 03:38 Pulse Ox 94 06/24/20 03:38 Assessment and Plan - Patient Problems (1) Schizophrenia, paranoid type Current Visit: Yes Status: Acute
[2020-06-24] MEDS: LISINOPRIL 5 MG TAB PO SCH (09:17)
[2020-06-24] MEDS: risperiDONE 0.25 MG TAB PO SCH (09:17)
[2020-06-24] MEDS: FLUoxetine 10 MG TAB PO SCH ×3 (09:17→11:11)
[2020-06-24] MEDS: ENOXAPARIN 40 MG/0.4 ML INJ SUB-Q SCH (09:18)
[2020-06-24] MEDS: DIVALPROEX DR 125 MG TAB PO SCH ×2 (09:18→22:15)
[2020-06-24] MEDS: SPIRONOLACTONE 25 MG TAB PO SCH (09:18)
[2020-06-24] MEDS: ASPIRIN EC 81 MG TAB PO SCH (09:18)
[2020-06-24] MEDS: FAMOTIDINE 20 MG TAB PO SCH ×2 (09:18→22:16)
[2020-06-24] MEDS: carvediloL 6.25 MG TAB PO SCH ×2 (09:18→22:17)
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
[2020-06-24] MEDS ORDERED: FLUoxetine 10 MG TAB PO ONE (11:00)
--- NOTE | 2020-06-24 11:53 | Progress Note ---
Assessment and Plan - Patient Problems (1) Acute on chronic systolic heart failure Current Visit: Yes Status: Acute Plan to address problem: Guideline directed medical therapy for chronic systolic heart failure and chronic dilated nonischemic cardiomyopathy. Subjective Date of service: 06/24/20 Principal diagnosis: NUPUR FARRELL-19; Acute Hypoxemic Respiratory Failure; AE-CHF Interval history: Patient is comfortable, no new cardiac complaints. To be recalled that cardiac catheterization revealed angiographically normal coronary arteries, establishing a diagnosis of a dilated nonischemic cardiomyopathy. Objective Vital Signs Temp Pulse Resp BP BP Pulse Ox 06/24/20 11:43 97.3 F L 94 H 18 99/68 94 06/24/20 09:18 95 H 119/88 06/24/20 09:17 95 H 119/88 06/24/20 07:59 98.0 F 95 H 119/88 97 06/24/20 07:57 18 06/24/20 03:38 97.5 F L 91 H 18 105/71 94 06/23/20 23:12 98.6 F 103 H 19 133/76 94 06/23/20 20:24 93 H 06/23/20 19:31 98.1 F 93 H 18 117/69 93 06/23/20 16:12 97.9 F 93 H 18 120/74 95 06/23/20 12:19 96.5 F L 85 18 124/80 97 06/23/20 12:03 98.0 F 72 20 138/98 98 - Physical Examination General: No Apparent Distress, Other (Moderately obese ) HEENT: Positive: PERRL Neck: Positive: trachea midline Cardiac: Positive: Reg Rate and Rhythm Lungs: Positive: Decreased Breath Sounds Neuro: Positive: Grossly Intact Abdomen: Positive: Soft Skin: Positive: Clear Extremities: Absent: edema - Allied health notes Allied health notes reviewed: nursing
--- NOTE | 2020-06-24 14:06 | Progress Note ---
Assessment and Plan Patient sleeping on room air. O2 saturation 96%. No acute respiratory distress. Patient afebrile. No leukocytosis. - Patient Problems (1) Acute respiratory failure Current Visit: Yes Status: Acute Plan to address problem: Improved. Patient presently on room air. Albuterol inhaler 2 puffs po qid prn for shortness of breath. Patient presently on , S/C Lovenox, Famotidine. (2) Acute congestive heart failure Current Visit: Yes Status: Acute Plan to address problem: Patient is on Lasix. Management as per primary care and cardiology. (3) Suspected COVID-19 virus infection Current Visit: Yes Status: Acute Plan to address problem: COvid 19 antibodies negative. COVID 19 PCR reported negative. Subjective Date of service: 06/24/20 Principal diagnosis: PUI COVID-19; Acute Hypoxemic Respiratory Failure; AE-CHF Interval history: Patient sleeping on room air. O2 saturation 98%. No acute respiratory distress. Patient afebrile. No leukocytosis. Objective Vital Signs - 12hr 06/24/20 06/24/20 06/24/20 03:38 07:10 07:57 Temperature 97.5 F L Pulse Rate 91 H 88 Respiratory 18 18 Rate Blood Pressure 105/71 Blood Pressure [Right] O2 Sat by Pulse 94 Oximetry 06/24/20 06/24/20 06/24/20 07:59 09:17 09:18 Temperature 98.0 F Pulse Rate 95 H 95 H 95 H Respiratory Rate Blood Pressure 119/88 119/88 119/88 Blood Pressure [Right] O2 Sat by Pulse 97 Oximetry 06/24/20 06/24/20 11:43 11:58 Temperature 97.3 F L 98.3 F Pulse Rate 94 H 107 H Respiratory 18 18 Rate Blood Pressure 99/68 Blood Pressure 89/54 [Right] O2 Sat by Pulse 94 96 Oximetry Constitutional: no acute distress, asleep, other (elderly obese male with mildly increased respiratory effort at rest) Eyes: non-icteric ENT: oropharynx moist, other (mallampati 3-4) Neck: supple, no JVD Effort: mildly labored Ascultation: Bilateral: clear, diminished breath sounds Percussion: Bilateral: not dull Cardiovascular: regular rate and rhythm Gastrointestinal: normoactive bowel sounds, soft, non-tender, non-distended (protuberant) Integumentary: normal Extremities: no cyanosis, no edema, pulses normal, no ischemia or petechiae Neurologic: normal mental status, non-focal exam, pupils equal and round, CN II- XII normal Psychiatric: mood appropriate, affect normal CBC and BMP: 06/22/20 06:00 06/22/20 06:00 ABG, PT/INR, D-dimer: PT/INR, D-dimer PT 13.1 Sec. (12.2-14.9) 06/21/20 04:49 INR 1.00 (0.87-1.13) 06/21/20 04:49 D-Dimer 1022.01 ng/mlDDU (0-234) H 06/19/20 08:15 Abnormal lab findings: Abnormal Labs 06/19/20 06/19/20 06/19/20 07:04 07:04 07:04 WBC MCV 100 H MCH 33 H Eos % (Auto) 4.6 H Seg Neutrophils % Seg Neutrophils # D-Dimer Carbon Dioxide BUN Glucose 110 H POC Glucose NT-Pro-B Natriuret Pep 1202 H 06/19/20 06/19/20 06/20/20 08:15 08:49 05:24 WBC MCV MCH Eos % (Auto) Seg Neutrophils % Seg Neutrophils # D-Dimer 1022.01 H Carbon Dioxide BUN Glucose 136 H 130 H POC Glucose NT-Pro-B Natriuret Pep 06/20/20 06/20/20 06/21/20 18:39 20:30 04:49 WBC 13.6 H MCV 100 H MCH Eos % (Auto) Seg Neutrophils % 79.3 H Seg Neutrophils # 10.8 H D-Dimer Carbon Dioxide BUN Glucose POC Glucose 163 H 112 H NT-Pro-B Natriuret Pep 06/21/20 06/22/20 06/22/20 04:49 06:00 06:00 WBC MCV 100 H MCH 33 H Eos % (Auto) Seg Neutrophils % Seg Neutrophils # D-Dimer Carbon Dioxide 32 H BUN 24 H Glucose 105 H POC Glucose NT-Pro-B Natriuret Pep Allied health notes reviewed: nursing
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
[2020-06-24] MEDS ORDERED: HYPROMELLOSE 0.5% OPHTH SOLN 15 ML OU PRN (15:37)
[2020-06-24] MEDS ORDERED: MINERAL OIL/PETROLATUM, WHITE OPHTH OINT 3.5 GM OU PRN (15:37)
[2020-06-25] MEDS: FUROSEMIDE 40 MG/4 ML INJ IV SCH (05:45)
[2020-06-25] MEDS: ASPIRIN EC 81 MG TAB PO SCH (09:17)
[2020-06-25] MEDS: LISINOPRIL 5 MG TAB PO SCH (09:17)
[2020-06-25] MEDS: FAMOTIDINE 20 MG TAB PO SCH (09:17)
[2020-06-25] MEDS: ENOXAPARIN 40 MG/0.4 ML INJ SUB-Q SCH (09:17)
[2020-06-25] MEDS: FLUoxetine 10 MG TAB PO SCH (09:17)
[2020-06-25] MEDS: carvediloL 6.25 MG TAB PO SCH (09:18)
[2020-06-25] MEDS: DIVALPROEX DR 125 MG TAB PO SCH (09:18)
[2020-06-25] MEDS: SPIRONOLACTONE 25 MG TAB PO SCH (09:18)
--- NOTE | 2020-06-25 09:21 | Progress Note ---
Assessment and Plan Acute CHF [facility] revealed angiographically normal coronary arteries, establishing a diagnosis of a dilated nonischemic cardiomyopathy. LVEF 25-30% Hypertension Poly-substance abuse Recommendations: Sodium and fluid restriction. Continue medical therapy for systolic heart failure and nonischemic cardiomyopathy. Otherwise, conservative cardiac management. Subjective Date of service: 06/25/20 Principal diagnosis: NUPUR GRANTID-19; Acute Hypoxemic Respiratory Failure; AE-CHF Interval history: Patient is sitting up in bed and appears comfortable. He denies shortness of breath. Awaits inpatient psych placement. Objective Vital Signs Temp Pulse Resp BP BP Pulse Ox 06/25/20 07:57 98.3 F 81 20 123/76 95 06/25/20 04:50 98.0 F 80 18 114/73 93 06/25/20 00:01 98.0 F 86 20 114/74 87 06/24/20 20:45 76 06/24/20 18:58 98.9 F 76 18 105/77 94 06/24/20 15:21 98.8 F 87 18 98/72 95 06/24/20 11:58 98.3 F 107 H 18 89/54 96 06/24/20 11:43 97.3 F L 94 H 18 99/68 94 - Physical Examination General: No Apparent Distress, Other (Moderately obese ) HEENT: Positive: PERRL Neck: Positive: trachea midline Cardiac: Positive: Reg Rate and Rhythm Lungs: Positive: Decreased Breath Sounds Neuro: Positive: Grossly Intact Extremities: Absent: edema - Allied health notes Allied health notes reviewed: nursing
--- NOTE | 2020-06-25 10:53 | Progress Note ---
Subjective - Reason for Consult Consult date: 06/25/20 Reason for consult: MHE Requesting physician: RASHID DESHPANDE - Chief Complaint Chief complaint: Floor Nurse Note: Attempted times two to give pt his meds this shift and pt refu sed. Stating he was not taking any medication tonight. Dr Roy made aware. continue to monitor. Psych Progress Note Patient seen this AM, reports feeling tired this AM, and asked if his current medications can be titrated down, endorses voices in his head getting better but would like to come to [facility], he does not feel he his mentally able to fully function yet. REVIEW OF SYSTEMS Constitutional: Negative for weight loss ENT: Negative for stridor Respiratory: Negative for cough or hemoptysis All other systems reviewed and are negative MENTAL STATUS EXAMINATION General Appearance and Behavior: Age appropriate, fair good hygiene, wearing appropriate clothes, good eye contact, uncooperative Cooperation: cooperative Psychomotor Behavior: guarded Mood: depressed, paranoid Affect and affective range: Congruent with stated mood Thought Process: illogical Thought Content: paranoia, delusions Speech: normal tone and pace Suicidal Ideation: Intermittent Homicidal Ideation: Yes, passive Hallucinations: Auditory Delusions: yes, paranoid Impulse Control: Impaired Insight and Judgment: Impaired insight and judgment Memory: Limited Attention: Impaired Orientation: Alert, oriented Assessment and Plan - Patient Problems (1) Schizophrenia, paranoid type Current Visit: Yes Status: Acute Treatment Plan Patient on fluoxetin and Olazanpine, doses adjusted and increased today. MEDICATIONS: Risks, benefits and alternatives of medications discussed with the patient, questions answered and consent obtained from patient. PSYCHOTHERAPY: Supportive psychotherapy provided MEDICAL: Per primary team DELIRIUM PRECAUTIONS: Please re-orient patient frequently, keep lights on during the day, and minimize benzodiazepines and opiates as these medications could worsen patient's confusion. CARE COORDINATOR: DISPOSITION: Do Recommend acute inpatient psychiatric hospitalization at this time. Case discussed with Dr. Arboleda who agrees with current disposition LEGAL STATUS: 1013 FOLLOW-UP: Will follow Thank you for the consult. Please contact with any questions and/or concerns. Mental Status Exam - Vital signs Last Vital Signs Temp 98.3 F 06/25/20 07:57 Pulse 81 06/25/20 07:57 Resp 20 06/25/20 07:57 BP 123/76 06/25/20 07:57 Pulse Ox 95 06/25/20 07:57 Assessment and Plan - Patient Problems (1) Schizophrenia, paranoid type Current Visit: Yes Status: Acute
[2020-06-25 14:31] VITALS: BP 145/85
== END 2020-06-25 15:15 | DRG 871 ==
LOC: ED 06:01 → 3A 08:02 → IMCU 09:58 → 4A 23:06 → 3A 23:49 → 4A 06-21 12:14
PROVIDERS: ADMIT Internal Medicine; ATTEND Internal Medicine
PROC: 5A09357 Assistance with Respiratory Ventilation, Less than 24 Consecutive Hours, Continuous Positive Airway Pressure (ICD-10-PCS; principal; 2020-06-19)
PROC: 4A023N7 Measurement of Cardiac Sampling and Pressure, Left Heart, Percutaneous Approach (ICD-10-PCS; 2020-06-21)
PROC: B2111ZZ Fluoroscopy of Multiple Coronary Arteries using Low Osmolar Contrast (ICD-10-PCS; 2020-06-21)
PROC: B2151ZZ Fluoroscopy of Left Heart using Low Osmolar Contrast (ICD-10-PCS; 2020-06-21)
DX: A41.9 Sepsis, unspecified organism (principal); J96.01 Acute respiratory failure with hypoxia; J18.9 Pneumonia, unspecified organism; I50.23 Acute on chronic systolic (congestive) heart failure; I11.0 Hypertensive heart disease with heart failure; G89.29 Other chronic pain; M54.9 Dorsalgia, unspecified; Z20.822 Contact with and (suspected) exposure to COVID-19; E66.01 Morbid (severe) obesity due to excess calories; Z68.41 Body mass index [BMI] 40.0-44.9, adult; R79.1 Abnormal coagulation profile; R65.20 Severe sepsis without septic shock; F31.30 Bipolar disorder, current episode depressed, mild or moderate severity, unspecified; F43.10 Post-traumatic stress disorder, unspecified; F20.0 Paranoid schizophrenia; I27.20 Pulmonary hypertension, unspecified; I42.0 Dilated cardiomyopathy; F17.210 Nicotine dependence, cigarettes, uncomplicated; F15.10 Other stimulant abuse, uncomplicated; F14.10 Cocaine abuse, uncomplicated; F12.10 Cannabis abuse, uncomplicated
CPT/HCPCS: 36415; 71045; 71275; 80048; 80053; 80307; 82140; 82728; 82947; 82962; 83615; 83735; 83880; 84145; 84484; 85025; 85027; 85379; 85610; 85730; 86140; 87040; 93005; 93306; 93458; 93970; 94644; 99406; G0378; C1894; J0456; J0696; J1100; J1644; J1650; J1940; J2250; J2930; J3010; J7040; Q9967; U0003

== ENCOUNTER 2020-07-08 19:15 | Emergency (ER) | payer MEDICAID ==
--- NOTE | 2020-07-08 19:25 | Emergency Department Report ---
Blank Doc - Documentation Documentation: This is a 60-year-old male that presents with alcohol and drug abuse. Stated is wanted detox. Last alcohol and cocaine was about 8 hours ago. This initial assessment/diagnostic orders/clinical plan/treatment(s) is/are subject to change based on patient's health status, clinical progression and re- assessment by fellow clinical providers in the ED. Further treatment and workup at subsequent clinical providers discretion. Patient/guardians urged not to elope from the ED as their condition may be serious if not clinically assessed and managed. Initial orders include: 1- Patient sent to MAIN ED for further evaluation and treatment 2- RN was notified to have patient be brought back [facility]. 3- RN was notified to keep patient as close range and observation until room available
[2020-07-08 19:50] VITALS: BP 120/79
[2020-07-08 20:12] LABS: Alanine Aminotransferase 14 units/L (7-56); Albumin 4.2 g/dL (3.9-5); BUN/Creatinine Ratio 8; Blood Urea Nitrogen 9 mg/dL (9-20); Calcium 9.8 mg/dL (8.4-10.2); Hemolysis Index 7
[2020-07-08 20:21] LABS: Basophils # (Auto) 0.1 K/mm3 (0.0-0.1); Basophils % (Auto) 0.9 % (0.0-1.8); Eosinophils # (Auto) 0.4 K/mm3 (0.0-0.4); Eosinophils % (Auto) 6.6 % (0.0-4.3); Hematocrit 42.6 % (35.5-45.6); Hemoglobin 14.6 gm/dl (11.8-15.2); Lymphocytes # (Auto) 3.1 K/mm3 (1.2-5.4); Lymphocytes % (Auto) 47.1 % (13.4-35.0); Mean Corpuscular HGB Conc 34 % (32-34); Mean Corpuscular Volume 97 fl (84-94); Monocytes # (Auto) 0.5 K/mm3 (0.0-0.8); Monocytes % (Auto) 7.5 % (0.0-7.3); Platelet Count 251 K/mm3 (140-440); Red Cell Distribution Width 13.8 % (13.2-15.2)
--- NOTE | 2020-07-08 21:54 | Emergency Department Report ---
ED Alcohol HPI - General Chief Complaint: Alcohol Stated Complaint: DETOX Time Seen by Provider: 07/08/20 19:23 Source: patient Mode of arrival: Ambulatory Limitations: No Limitations - History of Present Illness Initial Comments: This is a 60-year-old male nontoxic, well nourished in appearance, no acute signs of distress presents to the ED with c/o of alcohol and cocaine abuse and wanting detox program. Patient stated last alcoholic beverage and cocaine use was about 8 hours ago. Patient otherwise denies any symptoms. Patient denies any suicidal homicidal ideation. Denies any depression or any psychiatric conditions. Patient denies any tremors, weakness, lethargic, fatigue, dizziness, headache, stiff neck, numbness, tingling, bowel pain, nausea or vomiting. Patient denies any chest pain or shortness of breath. Patient denies any allergies. MD Complaint: alcohol dependence -: hour(s) (8) Chronic Alcohol Use: Yes Recent Trauma: No Associated Symptoms: denies other symptoms. denies: nausea, vomiting, syncope, seizure, diaphoresis, tremors, abdominal pain, hematemesis, melena, depression, suicidality Treatments Prior to Arrival: none - Related Data Previous Rx's Medication Instructions Recorded Last Taken Type Acetaminophen [Acetaminophen TAB] 650 mg PO Q4H PRN tablet 06/21/20 Unknown Rx Aspirin EC [Halfprin EC] 81 mg PO QDAY #30 tablet 06/21/[address] [Depakote Dr] 125 mg PO BID tablet 06/21/20 Unknown Rx Furosemide [Lasix] 40 mg PO QDAY #30 tablet 06/21/20 Unknown Rx HYDROcodone/APAP 5-325 [[place] 1 each PO Q4H PRN tablet 06/21/20 Unknown Rx 5-325 mg TAB] Spironolactone [Aldactone] 25 mg PO QDAY #30 tablet 06/21/20 Unknown Rx carvediloL [Coreg] 6.25 mg PO BID #60 tablet 06/21/20 Unknown Rx lisinopriL [Zestril TAB] 5 mg PO QDAY #30 tablet 06/21/20 Unknown Rx traMADoL [Ultram 50 MG tab] 50 mg PO Q6H PRN #14 tablet 06/21/20 Unknown Rx FLUoxetine [PROzac] 20 mg PO QDAY #30 capsule 06/29/20 Unknown Rx Melatonin [Melatonin 5MG TAB] 5 mg PO QHS PRN #30 tablet 06/29/20 Unknown Rx OLANzapine [ZyPREXA] 7.5 mg PO QHS #45 tablet 06/29/20 Unknown Rx traZODone [Desyrel] 50 mg PO QHS #30 tablet 06/29/20 Unknown Rx Multivitamin [Multiple Vitamins] 1 each PO DAILY #30 tablet 07/08/20 Unknown Rx chlordiazePOXIDE [Librium] 25 mg PO Q12H #12 capsule 07/08/20 Unknown Rx Allergies Allergy/AdvReac Type Severity Reaction Status Date / Time No Known Allergies Allergy Verified 06/19/20 06:10 ED Review of Systems ROS: Stated complaint: DETOX Other details as noted in HPI Comment: All other systems reviewed and negative Constitutional: denies: chills, fever Eyes: denies: eye pain, eye discharge, vision change ENT: denies: ear pain, throat pain Respiratory: denies: cough, shortness of breath, wheezing Cardiovascular: denies: chest pain, palpitations Endocrine: no symptoms reported Gastrointestinal: denies: abdominal pain, nausea, diarrhea Genitourinary: denies: urgency, dysuria Musculoskeletal: denies: back pain, joint swelling, arthralgia Skin: denies: rash, lesions Neurological: denies: headache, weakness, paresthesias Psychiatric: denies: anxiety, depression Hematological/Lymphatic: denies: easy bleeding, easy bruising ED Past Medical Hx - Past Medical History Previous Medical History?: Yes Hx Hypertension: Yes Hx Congestive Heart Failure: Yes (new onset) Hx Diabetes: No Hx Renal Disease: No Hx Arthritis: No Hx Seizures: No Hx COPD: No Additional medical history: chronic back - Surgical History Past Surgical History?: Yes Hx Cholecystectomy: Yes Hx Appendectomy: No - Social History Smoking Status: Current Every Day Smoker Substance Use Type: Alcohol, Cocaine, Marijuana - Medications Home Medications: Home Medications Medication Instructions Recorded Confirmed Last Taken Type Acetaminophen [Acetaminophen TAB] 650 mg PO Q4H PRN tablet 06/21/20 06/25/20 Unknown Rx Aspirin EC [Halfprin EC] 81 mg PO QDAY #30 tablet 06/21/20 06/25/[address] [Depakote Dr] 125 mg PO BID tablet 06/21/20 06/25/20 Unknown Rx Furosemide [Lasix] 40 mg PO QDAY #30 tablet 06/21/20 06/25/20 Unknown Rx HYDROcodone/APAP 5-325 [[place] 1 each PO Q4H PRN tablet 06/21/20 06/25/20 Unknown Rx 5-325 mg TAB] Spironolactone [Aldactone] 25 mg PO QDAY #30 tablet 06/21/20 06/25/20 Unknown Rx carvediloL [Coreg] 6.25 mg PO BID #60 tablet 06/21/20 06/25/20 Unknown Rx lisinopriL [Zestril TAB] 5 mg PO QDAY #30 tablet 06/21/20 06/25/20 Unknown Rx traMADoL [Ultram 50 MG tab] 50 mg PO Q6H PRN #14 tablet 06/21/20 06/25/20 Unknown Rx FLUoxetine [PROzac] 20 mg PO QDAY #30 capsule 06/29/20 Unknown Rx Melatonin [Melatonin 5MG TAB] 5 mg PO QHS PRN #30 tablet 06/29/20 Unknown Rx OLANzapine [ZyPREXA] 7.5 mg PO QHS #45 tablet 06/29/20 Unknown Rx traZODone [Desyrel] 50 mg PO QHS #30 tablet 06/29/20 Unknown Rx Multivitamin [Multiple Vitamins] 1 each PO DAILY #30 tablet 07/08/20 Unknown Rx chlordiazePOXIDE [Librium] 25 mg PO Q12H #12 capsule 07/08/20 Unknown Rx ED Physical Exam - General Limitations: No Limitations General appearance: alert, in no apparent distress - Head Head exam: Present: atraumatic, normocephalic - Eye Eye exam: Present: normal appearance, PERRL, EOMI - Neck Neck exam: Present: normal inspection, full ROM. Absent: tenderness, meningismus, lymphadenopathy - Respiratory Respiratory exam: Present: normal lung sounds bilaterally. Absent: respiratory distress, wheezes, rales, rhonchi, stridor, chest wall tenderness, accessory muscle use, decreased breath sounds, prolonged expiratory - Cardiovascular Cardiovascular Exam: Present: regular rate, normal rhythm, normal heart sounds. Absent: bradycardia, tachycardia, irregular rhythm, systolic murmur, diastolic murmur, rubs, gallop - GI/Abdominal GI/Abdominal exam: Present: soft, normal bowel sounds. Absent: distended, guarding, rebound, rigid, diminished bowel sounds - Extremities Exam Extremities exam: Present: normal inspection, full ROM - Back Exam Back exam: Present: normal inspection, full ROM. Absent: tenderness - Neurological Exam Neurological exam: Present: alert, oriented X3, normal gait - Psychiatric Psychiatric exam: Present: normal affect, normal mood - Skin Skin exam: Present: warm, dry, intact, normal color. Absent: rash ED Course Vital Signs 07/08/20 19:29 Temperature 98.0 F Pulse Rate 87 Respiratory 17 Rate Blood Pressure 120/79 O2 Sat by Pulse 95 Oximetry - Reevaluation(s) Reevaluation #1: 07/08/20 21:57 Patient is speaking in full sentences with no signs of distress noted. - Consultations Consultation #1: 07/08/20 21:57 Patient has been consulted with Dr. Leija about patient history, physical exam, and labs and agrees to ED plan of care and discharge plan of care. ED Medical Decision Making - Lab Data Result diagrams: 07/08/20 19:32 07/08/20 19:32 Lab Results 07/08/20 07/08/20 07/08/20 Range/Units 19:32 19:32 19:32 WBC 6.6 (4.5-11.0) K/mm3 RBC 4.40 (3.65-5.03) M/mm3 Hgb 14.6 (11.8-15.2) gm/dl Hct 42.6 (35.5-45.6) % MCV 97 H (84-94) fl MCH 33 H (28-32) pg MCHC 34 (32-34) % RDW 13.8 (13.2-15.2) % Plt Count 251 (140-440) K/mm3 Lymph % (Auto) 47.1 H (13.4-35.0) % [place] % (Auto) 7.5 H (0.0-7.3) % Eos % (Auto) 6.6 H (0.0-4.3) % Baso % (Auto) 0.9 (0.0-1.8) % Lymph # (Auto) 3.1 (1.2-5.4) K/mm3 [place] # (Auto) 0.5 (0.0-0.8) K/mm3 Eos # (Auto) 0.4 (0.0-0.4) K/mm3 Baso # (Auto) 0.1 (0.0-0.1) K/mm3 Seg Neutrophils % 37.9 L (40.0-70.0) % Seg Neutrophils # 2.5 (1.8-7.7) K/mm3 Sodium 143 (137-145) mmol/L Potassium 3.6 (3.6-5.0) mmol/L Chloride 104.1 (98-107) mmol/L Carbon Dioxide 27 (22-30) mmol/L Anion Gap 16 mmol/L BUN 9 (9-20) mg/dL Creatinine 1.1 (0.8-1.3) mg/dL Estimated GFR > 60 ml/min BUN/Creatinine Ratio 8 % Glucose 113 H (75-100) mg/dL Calcium 9.8 (8.4-10.2) mg/dL Total Bilirubin 0.20 (0.1-1.2) mg/dL AST 11 (5-40) units/L ALT 14 (7-56) units/L Alkaline Phosphatase 96 (35-129) units/L Total Protein 6.5 (6.3-8.2) g/dL Albumin 4.2 (3.9-5) g/dL Albumin/Globulin Ratio 1.8 % Urine Color (Yellow) Urine Turbidity (Clear) Urine pH (5.0-7.0) Ur Specific [place] (1.003-1.030) Urine Protein (Negative) mg/dL Urine Glucose (UA) (Negative) mg/dL Urine Ketones (Negative) mg/dL Urine Blood (Negative) Urine Nitrite (Negative) Urine Bilirubin (Negative) Urine Urobilinogen (<2.0) mg/dL Ur Leukocyte Esterase (Negative) Urine WBC (Auto) (0.0-6.0) /HPF Urine RBC (Auto) (0.0-6.0) /HPF Urine Mucus /HPF Salicylates < 0.3 L (2.8-20.0) mg/dL Urine Opiates Screen Urine Methadone Screen Acetaminophen (10.0-30.0) ug/mL Ur Barbiturates Screen Ur Phencyclidine Scrn Ur Amphetamines Screen U Benzodiazepines Scrn U Marijuana (THC) Screen Plasma/Serum Alcohol (0-0.07) % 07/08/20 07/08/20 07/08/20 Range/Units 19:32 19:32 21:34 WBC (4.5-11.0) K/mm3 RBC (3.65-5.03) M/mm3 Hgb (11.8-15.2) gm/dl Hct (35.5-45.6) % MCV (84-94) fl MCH (28-32) pg MCHC (32-34) % RDW (13.2-15.2) % Plt Count (140-440) K/mm3 Lymph % (Auto) (13.4-35.0) % [place] % (Auto) (0.0-7.3) % Eos % (Auto) (0.0-4.3) % Baso % (Auto) (0.0-1.8) % Lymph # (Auto) (1.2-5.4) K/mm3 [place] # (Auto) (0.0-0.8) K/mm3 Eos # (Auto) (0.0-0.4) K/mm3 Baso # (Auto) (0.0-0.1) K/mm3 Seg Neutrophils % (40.0-70.0) % Seg Neutrophils # (1.8-7.7) K/mm3 Sodium (137-145) mmol/L Potassium (3.6-5.0) mmol/L Chloride (98-107) mmol/L Carbon Dioxide (22-30) mmol/L Anion Gap mmol/L BUN (9-20) mg/dL Creatinine (0.8-1.3) mg/dL Estimated GFR ml/min BUN/Creatinine Ratio % Glucose (75-100) mg/dL Calcium (8.4-10.2) mg/dL Total Bilirubin (0.1-1.2) mg/dL AST (5-40) units/L ALT (7-56) units/L Alkaline Phosphatase (35-129) units/L Total Protein (6.3-8.2) g/dL Albumin (3.9-5) g/dL Albumin/Globulin Ratio % Urine Color Yellow (Yellow) Urine Turbidity Clear (Clear) Urine pH 5.0 (5.0-7.0) Ur Specific [place] 1.017 (1.003-1.030) Urine Protein <15 mg/dl (Negative) mg/dL Urine Glucose (UA) Neg (Negative) mg/dL Urine Ketones Neg (Negative) mg/dL Urine Blood Neg (Negative) Urine Nitrite Neg (Negative) Urine Bilirubin Neg (Negative) Urine Urobilinogen < 2.0 (<2.0) mg/dL Ur Leukocyte Esterase Neg (Negative) Urine WBC (Auto) < 1.0 (0.0-6.0) /HPF Urine RBC (Auto) 1.0 (0.0-6.0) /HPF Urine Mucus Few /HPF Salicylates (2.8-20.0) mg/dL Urine Opiates Screen Urine Methadone Screen Acetaminophen 5.0 L (10.0-30.0) ug/mL Ur Barbiturates Screen Ur Phencyclidine Scrn Ur Amphetamines Screen U Benzodiazepines Scrn U Marijuana (THC) Screen Plasma/Serum Alcohol < 0.01 (0-0.07) % 07/08/20 Range/Units 21:34 WBC (4.5-11.0) K/mm3 RBC (3.65-5.03) M/mm3 Hgb (11.8-15.2) gm/dl Hct (35.5-45.6) % MCV (84-94) fl MCH (28-32) pg MCHC (32-34) % RDW (13.2-15.2) % Plt Count (140-440) K/mm3 Lymph % (Auto) (13.4-35.0) % [place] % (Auto) (0.0-7.3) % Eos % (Auto) (0.0-4.3) % Baso % (Auto) (0.0-1.8) % Lymph # (Auto) (1.2-5.4) K/mm3 [place] # (Auto) (0.0-0.8) K/mm3 Eos # (Auto) (0.0-0.4) K/mm3 Baso # (Auto) (0.0-0.1) K/mm3 Seg Neutrophils % (40.0-70.0) % Seg Neutrophils # (1.8-7.7) K/mm3 Sodium (137-145) mmol/L Potassium (3.6-5.0) mmol/L Chloride (98-107) mmol/L Carbon Dioxide (22-30) mmol/L Anion Gap mmol/L BUN (9-20) mg/dL Creatinine (0.8-1.3) mg/dL Estimated GFR ml/min BUN/Creatinine Ratio % Glucose (75-100) mg/dL Calcium (8.4-10.2) mg/dL Total Bilirubin (0.1-1.2) mg/dL AST (5-40) units/L ALT (7-56) units/L Alkaline Phosphatase (35-129) units/L Total Protein (6.3-8.2) g/dL Albumin (3.9-5) g/dL Albumin/Globulin Ratio % Urine Color (Yellow) Urine Turbidity (Clear) Urine pH (5.0-7.0) Ur Specific [place] (1.003-1.030) Urine Protein (Negative) mg/dL Urine Glucose (UA) (Negative) mg/dL Urine Ketones (Negative) mg/dL Urine Blood (Negative) Urine Nitrite (Negative) Urine Bilirubin (Negative) Urine Urobilinogen (<2.0) mg/dL Ur Leukocyte Esterase (Negative) Urine WBC (Auto) (0.0-6.0) /HPF Urine RBC (Auto) (0.0-6.0) /HPF Urine Mucus /HPF Salicylates (2.8-20.0) mg/dL Urine Opiates Screen Negative Urine Methadone Screen Negative Acetaminophen (10.0-30.0) ug/mL Ur Barbiturates Screen Negative Ur Phencyclidine Scrn Negative Ur Amphetamines Screen Negative U Benzodiazepines Scrn Negative U Marijuana (THC) Screen Negative Plasma/Serum Alcohol (0-0.07) % Lab Results 07/08/20 07/08/20 07/08/20 Range/Units 19:32 19:32 19:32 WBC 6.6 (4.5-11.0) K/mm3 RBC 4.40 (3.65-5.03) M/mm3 Hgb 14.6 (11.8-15.2) gm/dl Hct 42.6 (35.5-45.6) % MCV 97 H (84-94) fl MCH 33 H (28-32) pg MCHC 34 (32-34) % RDW 13.8 (13.2-15.2) % Plt Count 251 (140-440) K/mm3 Lymph % (Auto) 47.1 H (13.4-35.0) % [place] % (Auto) 7.5 H (0.0-7.3) % Eos % (Auto) 6.6 H (0.0-4.3) % Baso % (Auto) 0.9 (0.0-1.8) % Lymph # (Auto) 3.1 (1.2-5.4) K/mm3 [place] # (Auto) 0.5 (0.0-0.8) K/mm3 Eos # (Auto) 0.4 (0.0-0.4) K/mm3 Baso # (Auto) 0.1 (0.0-0.1) K/mm3 Seg Neutrophils % 37.9 L (40.0-70.0) % Seg Neutrophils # 2.5 (1.8-7.7) K/mm3 Sodium 143 (137-145) mmol/L Potassium 3.6 (3.6-5.0) mmol/L Chloride 104.1 (98-107) mmol/L Carbon Dioxide 27 (22-30) mmol/L Anion Gap 16 mmol/L BUN 9 (9-20) mg/dL Creatinine 1.1 (0.8-1.3) mg/dL Estimated GFR > 60 ml/min BUN/Creatinine Ratio 8 % Glucose 113 H (75-100) mg/dL Calcium 9.8 (8.4-10.2) mg/dL Total Bilirubin 0.20 (0.1-1.2) mg/dL AST 11 (5-40) units/L ALT 14 (7-56) units/L Alkaline Phosphatase 96 (35-129) units/L Total Protein 6.5 (6.3-8.2) g/dL Albumin 4.2 (3.9-5) g/dL Albumin/Globulin Ratio 1.8 % Urine Color (Yellow) Urine Turbidity (Clear) Urine pH (5.0-7.0) Ur Specific [place] (1.003-1.030) Urine Protein (Negative) mg/dL Urine Glucose (UA) (Negative) mg/dL Urine Ketones (Negative) mg/dL Urine Blood (Negative) Urine Nitrite (Negative) Urine Bilirubin (Negative) Urine Urobilinogen (<2.0) mg/dL Ur Leukocyte Esterase (Negative) Urine WBC (Auto) (0.0-6.0) /HPF Urine RBC (Auto) (0.0-6.0) /HPF Urine Mucus /HPF Salicylates < 0.3 L (2.8-20.0) mg/dL Urine Opiates Screen Urine Methadone Screen Acetaminophen (10.0-30.0) ug/mL Ur Barbiturates Screen Ur Phencyclidine Scrn Ur Amphetamines Screen U Benzodiazepines Scrn Urine Cocaine Screen U Marijuana (THC) Screen Drugs of Abuse Note Plasma/Serum Alcohol (0-0.07) % 07/08/20 07/08/20 07/08/20 Range/Units 19:32 19:32 21:34 WBC (4.5-11.0) K/mm3 RBC (3.65-5.03) M/mm3 Hgb (11.8-15.2) gm/dl Hct (35.5-45.6) % MCV (84-94) fl MCH (28-32) pg MCHC (32-34) % RDW (13.2-15.2) % Plt Count (140-440) K/mm3 Lymph % (Auto) (13.4-35.0) % [place] % (Auto) (0.0-7.3) % Eos % (Auto) (0.0-4.3) % Baso % (Auto) (0.0-1.8) % Lymph # (Auto) (1.2-5.4) K/mm3 [place] # (Auto) (0.0-0.8) K/mm3 Eos # (Auto) (0.0-0.4) K/mm3 Baso # (Auto) (0.0-0.1) K/mm3 Seg Neutrophils % (40.0-70.0) % Seg Neutrophils # (1.8-7.7) K/mm3 Sodium (137-145) mmol/L Potassium (3.6-5.0) mmol/L Chloride (98-107) mmol/L Carbon Dioxide (22-30) mmol/L Anion Gap mmol/L BUN (9-20) mg/dL Creatinine (0.8-1.3) mg/dL Estimated GFR ml/min BUN/Creatinine Ratio % Glucose (75-100) mg/dL Calcium (8.4-10.2) mg/dL Total Bilirubin (0.1-1.2) mg/dL AST (5-40) units/L ALT (7-56) units/L Alkaline Phosphatase (35-129) units/L Total Protein (6.3-8.2) g/dL Albumin (3.9-5) g/dL Albumin/Globulin Ratio % Urine Color Yellow (Yellow) Urine Turbidity Clear (Clear) Urine pH 5.0 (5.0-7.0) Ur Specific [place] 1.017 (1.003-1.030) Urine Protein <15 mg/dl (Negative) mg/dL Urine Glucose (UA) Neg (Negative) mg/dL Urine Ketones Neg (Negative) mg/dL Urine Blood Neg (Negative) Urine Nitrite Neg (Negative) Urine Bilirubin Neg (Negative) Urine Urobilinogen < 2.0 (<2.0) mg/dL Ur Leukocyte Esterase Neg (Negative) Urine WBC (Auto) < 1.0 (0.0-6.0) /HPF Urine RBC (Auto) 1.0 (0.0-6.0) /HPF Urine Mucus Few /HPF Salicylates (2.8-20.0) mg/dL Urine Opiates Screen Urine Methadone Screen Acetaminophen 5.0 L (10.0-30.0) ug/mL Ur Barbiturates Screen Ur Phencyclidine Scrn Ur Amphetamines Screen U Benzodiazepines Scrn Urine Cocaine Screen U Marijuana (THC) Screen Drugs of Abuse Note Plasma/Serum Alcohol < 0.01 (0-0.07) % 07/08/20 Range/Units 21:34 WBC (4.5-11.0) K/mm3 RBC (3.65-5.03) M/mm3 Hgb (11.8-15.2) gm/dl Hct (35.5-45.6) % MCV (84-94) fl MCH (28-32) pg MCHC (32-34) % RDW (13.2-15.2) % Plt Count (140-440) K/mm3 Lymph % (Auto) (13.4-35.0) % [place] % (Auto) (0.0-7.3) % Eos % (Auto) (0.0-4.3) % Baso % (Auto) (0.0-1.8) % Lymph # (Auto) (1.2-5.4) K/mm3 [place] # (Auto) (0.0-0.8) K/mm3 Eos # (Auto) (0.0-0.4) K/mm3 Baso # (Auto) (0.0-0.1) K/mm3 Seg Neutrophils % (40.0-70.0) % Seg Neutrophils # (1.8-7.7) K/mm3 Sodium (137-145) mmol/L Potassium (3.6-5.0) mmol/L Chloride (98-107) mmol/L Carbon Dioxide (22-30) mmol/L Anion Gap mmol/L BUN (9-20) mg/dL Creatinine (0.8-1.3) mg/dL Estimated GFR ml/min BUN/Creatinine Ratio % Glucose (75-100) mg/dL Calcium (8.4-10.2) mg/dL Total Bilirubin (0.1-1.2) mg/dL AST (5-40) units/L ALT (7-56) units/L Alkaline Phosphatase (35-129) units/L Total Protein (6.3-8.2) g/dL Albumin (3.9-5) g/dL Albumin/Globulin Ratio % Urine Color (Yellow) Urine Turbidity (Clear) Urine pH (5.0-7.0) Ur Specific [place] (1.003-1.030) Urine Protein (Negative) mg/dL Urine Glucose (UA) (Negative) mg/dL Urine Ketones (Negative) mg/dL Urine Blood (Negative) Urine Nitrite (Negative) Urine Bilirubin (Negative) Urine Urobilinogen (<2.0) mg/dL Ur Leukocyte Esterase (Negative) Urine WBC (Auto) (0.0-6.0) /HPF Urine RBC (Auto) (0.0-6.0) /HPF Urine Mucus /HPF Salicylates (2.8-20.0) mg/dL Urine Opiates Screen Negative Urine Methadone Screen Negative Acetaminophen (10.0-30.0) ug/mL Ur Barbiturates Screen Negative Ur Phencyclidine Scrn Negative Ur Amphetamines Screen Negative U Benzodiazepines Scrn Negative Urine Cocaine Screen Positive U Marijuana (THC) Screen Negative Drugs of Abuse Note Disclamer Plasma/Serum Alcohol (0-0.07) % - Medical Decision Making 60-year-old male that presents with detox referrals. Patient is stable and was examined by me. Labs are unremarkable. Vital signs are stable. Patient will be treated with Librium taper dose. Patient received referrals for detox program. Exam is unremarkable. Patient does not meet psychiatric emergency. At time of discharge, the patient does not seem toxic or ill in appearance. No acute signs of distress noted. Patient agrees to discharge treatment plan of care. No further questions noted by the patient. Critical care attestation.: If time is entered above; I have spent that time in minutes in the direct care of this critically ill patient, excluding procedure time. ED Disposition Clinical Impression: Alcohol abuse, Drug abuse, Desire for detoxification Disposition: DC-01 TO HOME OR SELFCARE Is pt being admited?: No Does the pt Need Aspirin: No Condition: Stable Instructions: Alcohol Use Disorder, Substance Use Disorder and Mental Illness, Chlordiazepoxide capsules Additional Instructions: You have been given referrals for detox programs and it is strictly recommended that you follow-up CASE[facility] with preferably after this discharge. [address] [place] [address] Follow-up with a primary care doctor in 3-5 days or if symptoms worsen and continue return to emergency room as soon as possible. In case of an emergency, please contact the following numbers: [place] Crisis and Access Line: Number: Crisis Text Line: (Text START) Number: [phone] Suicide Prevention Line: Number: Emergency Number: 911 SUBSTANCE ABUSE PROGRAMS: [facility]: Location: [place], [place] [facility] Address: [address] [place] [address] [facility]: Address: [address] [place] [address] [facility]: Address: [address] [place] [address] [facility]: Address: [address] [place] [address] [facility] Address: [address] [place] [id number]. Please contact above numbers to attempt placement into free based program. Medicaid Programs: [facility]: Address: [address] [place] [address] [facility]: Address: [address] [place] [address] Prescriptions: chlordiazePOXIDE [Librium] 25 mg PO Q12H #12 capsule Multivitamin [Multiple Vitamins] 1 each PO DAILY #30 tablet Referrals: PRIMARY CAREMD [Primary Care Provider] - 3-5 Days CLARISSA TAPIA MD [Staff Physician] - 3-5 Days [facility] [Provider Group] - 3-5 Days [facility] [Outside] - 3-5 Days Time of Disposition: 22:48
[2020-07-08 22:23] LABS: Bilirubin,Urine NEG (Negative); Blood,Urine NEG (Negative); Color,Urine Yellow (Yellow); Mucus,Urine FEW /HPF; Protein,Urine <15 mg/dL mg/dL (Negative); Urobilinogen,Urine < 2.0 mg/dL (<2.0); WBC,Urine < 1.0 /HPF (0.0-6.0)
[2020-07-08 22:32] LABS: Amphetamine Screen,Urine Negative; Benzodiazepines Screen,Urine Negative; Cannabinoid Screen,Urine Negative; Methadone Screen,Urine Negative; Opiate Screen,Urine Negative
[2020-07-08 22:56] LABS: Cocaine Screen,Urine Positive
== END 2020-07-09 02:00 | disposition home or self-care (01) ==
LOC: ED 19:15
DX: F10.10 Alcohol abuse, uncomplicated (principal); I11.0 Hypertensive heart disease with heart failure; I50.9 Heart failure, unspecified; Z90.49 Acquired absence of other specified parts of digestive tract; F17.200 Nicotine dependence, unspecified, uncomplicated; F12.10 Cannabis abuse, uncomplicated; F14.10 Cocaine abuse, uncomplicated; Z79.899 Other long term (current) drug therapy
CPT/HCPCS: 36415; 80053; 80307; 80320; 81001; 85025; G0480

== ENCOUNTER 2020-08-24 03:06 | Emergency (ER) | payer MEDICAID ==
[2020-08-24] MEDS ORDERED: ASPIRIN 325 MG TAB PO ONE (03:25)
[2020-08-24 03:52] LABS: Basophils # (Auto) 0.1 K/mm3 (0.0-0.1); Basophils % (Auto) 0.8 % (0.0-1.8); Eosinophils # (Auto) 0.3 K/mm3 (0.0-0.4); Eosinophils % (Auto) 4.5 % (0.0-4.3); Hematocrit 38.8 % (35.5-45.6); Hemoglobin 13.4 gm/dl (11.8-15.2); Lymphocytes # (Auto) 2.4 K/mm3 (1.2-5.4); Lymphocytes % (Auto) 34.9 % (13.4-35.0); Mean Corpuscular HGB Conc 35 % (32-34); Mean Corpuscular Volume 97 fl (84-94); Monocytes # (Auto) 0.5 K/mm3 (0.0-0.8); Monocytes % (Auto) 7.1 % (0.0-7.3); Platelet Count 188 K/mm3 (140-440); Red Blood Count 4.02 M/mm3 (3.65-5.03); Red Cell Distribution Width 14.3 % (13.2-15.2)
--- NOTE | 2020-08-24 03:59 | XRay Report ---
CHEST PA AND LATERAL VIEWS INDICATION: chest pain. COMPARISON: 06/19/2020 FINDINGS: Support devices: None Heart: Normal Lungs/Pleura: No acute pulmonary or pleural findings. IMPRESSION: 1. No acute disease. Signer Name: Onur Marcano MD Signed: 08/24/2020 3:55 AM Workstation Name: [id number]
[2020-08-24 04:17] LABS: Alanine Aminotransferase 19 units/L (7-56); BUN/Creatinine Ratio 9; Blood Urea Nitrogen 9 mg/dL (9-20); Hemolysis Index 5
--- NOTE | 2020-08-24 05:21 | Emergency Department Report ---
ED Chest Pain HPI - General Chief Complaint: Chest Pain Stated Complaint: CHEST PAIN;ANXIETY Time Seen by Provider: 08/24/20 03:50 Source: patient Mode of arrival: Ambulatory Limitations: No Limitations - History of Present Illness Initial Comments: Patient is a 60-year-old F [place] female who is presenting with chest discomfort. States his pain in his left shoulder and mid chest. States is a heavy type sensation. States is intermittent the been occurring for the last several months. Patient is states he has been very depressed is grieving the passing of his last year. He also states he has been drinking more but denies any suicidal homicidal ideations. Is no exertional component to the chest pain states there is no pleurisy or shortness of breath nausea vomiting or diarrhea. - Related Data Previous Rx's Medication Instructions Recorded Last Taken Type Acetaminophen [Acetaminophen TAB] 650 mg PO Q4H PRN tablet 06/21/20 Unknown Rx Aspirin EC [Halfprin EC] 81 mg PO QDAY #30 tablet 06/21/[address] [Depakote Dr] 125 mg PO BID tablet 06/21/20 Unknown Rx Furosemide [Lasix] 40 mg PO QDAY #30 tablet 06/21/20 Unknown Rx HYDROcodone/APAP 5-325 [Am[place]on 1 each PO Q4H PRN tablet 06/21/20 Unknown Rx 5-325 mg TAB] Spironolactone [Aldactone] 25 mg PO QDAY #30 tablet 06/21/20 Unknown Rx carvediloL [Coreg] 6.25 mg PO BID #60 tablet 06/21/20 Unknown Rx lisinopriL [Zestril TAB] 5 mg PO QDAY #30 tablet 06/21/20 Unknown Rx traMADoL [Ultram 50 MG tab] 50 mg PO Q6H PRN #14 tablet 06/21/20 Unknown Rx FLUoxetine [PROzac] 20 mg PO QDAY #30 capsule 06/29/20 Unknown Rx Melatonin [Melatonin 5MG TAB] 5 mg PO QHS PRN #30 tablet 06/29/20 Unknown Rx OLANzapine [ZyPREXA] 7.5 mg PO QHS #45 tablet 06/29/20 Unknown Rx traZODone [Desyrel] 50 mg PO QHS #30 tablet 06/29/20 Unknown Rx Multivitamin [Multiple Vitamins] 1 each PO DAILY #30 tablet 07/08/20 Unknown Rx chlordiazePOXIDE [Librium] 25 mg PO Q12H #12 capsule 07/08/20 Unknown Rx Famotidine [Pepcid] 40 mg PO QHS #10 tablet 08/24/20 Unknown Rx Ibuprofen [Motrin 600 MG tab] 600 mg PO Q8H PRN #20 tablet 08/24/20 Unknown Rx Allergies Allergy/AdvReac Type Severity Reaction Status Date / Time No Known Allergies Allergy Verified 08/24/20 03:20 Heart Score - HEART Score History: Slightly suspicious EKG: Normal Age: 45-65 Risk factors: 1-2 risk factors Troponin: < normal limit HEART Score: 2 ED Review of Systems ROS: Stated complaint: CHEST PAIN;ANXIETY Other details as noted in HPI Comment: All other systems reviewed and negative Constitutional: denies: chills, fever Eyes: denies: eye pain, eye discharge, vision change ENT: denies: ear pain, throat pain Respiratory: denies: cough, shortness of breath, wheezing Cardiovascular: chest pain. denies: palpitations Endocrine: no symptoms reported Gastrointestinal: denies: abdominal pain, nausea, diarrhea Genitourinary: denies: urgency, dysuria Musculoskeletal: denies: back pain, joint swelling, arthralgia Skin: denies: rash, lesions Neurological: denies: headache, weakness, paresthesias Psychiatric: denies: anxiety, depression Hematological/Lymphatic: denies: easy bleeding, easy bruising ED Past Medical Hx - Past Medical History Hx Hypertension: Yes Hx Congestive Heart Failure: Yes (new onset) Hx Diabetes: No Hx Renal Disease: No Hx Arthritis: No Hx Seizures: No Hx COPD: No Additional medical history: chronic back - Surgical History Hx Cholecystectomy: Yes Hx Appendectomy: No - Social History Smoking Status: Current Every Day Smoker Substance Use Type: None - Medications Home Medications: Home Medications Medication Instructions Recorded Confirmed Last Taken Type Acetaminophen [Acetaminophen TAB] 650 mg PO Q4H PRN tablet 06/21/20 06/25/20 Unknown Rx Aspirin EC [Halfprin EC] 81 mg PO QDAY #30 tablet 06/21/20 06/25/[address] [Depakote Dr] 125 mg PO BID tablet 06/21/20 06/25/20 Unknown Rx Furosemide [Lasix] 40 mg PO QDAY #30 tablet 06/21/20 06/25/20 Unknown Rx HYDROcodone/APAP 5-325 [[place]on 1 each PO Q4H PRN tablet 06/21/20 06/25/20 Unknown Rx 5-325 mg TAB] Spironolactone [Aldactone] 25 mg PO QDAY #30 tablet 06/21/20 06/25/20 Unknown Rx carvediloL [Coreg] 6.25 mg PO BID #60 tablet 06/21/20 06/25/20 Unknown Rx lisinopriL [Zestril TAB] 5 mg PO QDAY #30 tablet 06/21/20 06/25/20 Unknown Rx traMADoL [Ultram 50 MG tab] 50 mg PO Q6H PRN #14 tablet 06/21/20 06/25/20 Unknown Rx FLUoxetine [PROzac] 20 mg PO QDAY #30 capsule 06/29/20 Unknown Rx Melatonin [Melatonin 5MG TAB] 5 mg PO QHS PRN #30 tablet 06/29/20 Unknown Rx OLANzapine [ZyPREXA] 7.5 mg PO QHS #45 tablet 06/29/20 Unknown Rx traZODone [Desyrel] 50 mg PO QHS #30 tablet 06/29/20 Unknown Rx Multivitamin [Multiple Vitamins] 1 each PO DAILY #30 tablet 07/08/20 Unknown Rx chlordiazePOXIDE [Librium] 25 mg PO Q12H #12 capsule 07/08/20 Unknown Rx Famotidine [Pepcid] 40 mg PO QHS #10 tablet 08/24/20 Unknown Rx Ibuprofen [Motrin 600 MG tab] 600 mg PO Q8H PRN #20 tablet 08/24/20 Unknown Rx ED Physical Exam - General Limitations: No Limitations General appearance: alert, in no apparent distress - Head Head exam: Present: atraumatic, normocephalic - Eye Eye exam: Present: normal appearance, PERRL, EOMI - ENT ENT exam: Present: mucous membranes moist - Neck Neck exam: Present: normal inspection - Respiratory Respiratory exam: Present: normal lung sounds bilaterally. Absent: respiratory distress, wheezes, rales, rhonchi - Cardiovascular Cardiovascular Exam: Present: regular rate, normal rhythm. Absent: systolic murmur, diastolic murmur, rubs, gallop - GI/Abdominal GI/Abdominal exam: Present: soft, normal bowel sounds. Absent: distended, tenderness, guarding, rebound - Rectal Rectal exam: Present: deferred - Extremities Exam Extremities exam: Present: normal inspection - Back Exam Back exam: Present: normal inspection - Neurological Exam Neurological exam: Present: alert, oriented X3 - Psychiatric Psychiatric exam: Present: normal affect, depressed - Skin Skin exam: Present: warm, dry, intact, normal color. Absent: rash ED Course Vital Signs 08/24/20 03:23 Temperature 98.6 F Pulse Rate 99 H Respiratory 18 Rate Blood Pressure 148/88 O2 Sat by Pulse 95 Oximetry ED Medical Decision Making - Lab Data Result diagrams: 08/24/20 03:33 08/24/20 03:33 Lab Results 08/24/20 08/24/20 Range/Units 03:33 03:33 WBC 6.9 (4.5-11.0) K/mm3 RBC 4.02 (3.65-5.03) M/mm3 Hgb 13.4 (11.8-15.2) gm/dl Hct 38.8 (35.5-45.6) % MCV 97 H (84-94) fl MCH 33 H (28-32) pg MCHC 35 H (32-34) % RDW 14.3 (13.2-15.2) % Plt Count 188 (140-440) K/mm3 Lymph % (Auto) 34.9 (13.4-35.0) % [place] % (Auto) 7.1 (0.0-7.3) % Eos % (Auto) 4.5 H (0.0-4.3) % Baso % (Auto) 0.8 (0.0-1.8) % Lymph # (Auto) 2.4 (1.2-5.4) K/mm3 [place] # (Auto) 0.5 (0.0-0.8) K/mm3 Eos # (Auto) 0.3 (0.0-0.4) K/mm3 Baso # (Auto) 0.1 (0.0-0.1) K/mm3 Seg Neutrophils % 52.7 (40.0-70.0) % Seg Neutrophils # 3.6 (1.8-7.7) K/mm3 Sodium 140 (137-145) mmol/L Potassium 3.6 (3.6-5.0) mmol/L Chloride 103.9 (98-107) mmol/L Carbon Dioxide 27 (22-30) mmol/L Anion Gap 13 mmol/L BUN 9 (9-20) mg/dL Creatinine 1.0 (0.8-1.3) mg/dL Estimated GFR > 60 ml/min BUN/Creatinine Ratio 9 % Glucose 138 H (75-100) mg/dL Calcium 9.0 (8.4-10.2) mg/dL Total Bilirubin 0.50 (0.1-1.2) mg/dL AST 13 (5-40) units/L ALT 19 (7-56) units/L Alkaline Phosphatase 81 (35-129) units/L Troponin T < 0.010 (0.00-0.029) ng/mL Total Protein 6.3 (6.3-8.2) g/dL Albumin 4.0 (3.9-5) g/dL Albumin/Globulin Ratio 1.7 % - EKG Data -: EKG Interpreted by [place] EKG shows normal: sinus rhythm, axis, intervals, QRS complexes, ST-T waves Rate: normal - EKG Data Interpretation: normal EKG - Radiology Data [facility] [address] [place] [address] XRay Report Signed Patient: EDWARDO RUGGIERO III MR#: [id number] : 1960 Acct:[id number] Age/Sex: 60 / M ADM Date: 08/24/20 Loc: ED Attending Dr: Ordering Physician: CHRISTIN SHAHID MD Date of Service: 08/24/20 Procedure(s): XR chest routine 2V Accession Number(s): [id number] cc: CHRISTIN SHAHID MD Fluoro Time In Minutes: CHEST PA AND LATERAL VIEWS INDICATION: chest pain. COMPARISON: 06/19/2020 FINDINGS: Support devices: None Heart: Normal Lungs/Pleura: No acute pulmonary or pleural findings. IMPRESSION: 1. No acute disease. Signer Name: Onur Marcano MD Signed: 08/24/2020 3:55 AM Workstation Name: [id number] Transcribed By: TM Dictated By: Onur Marcano MD Electronically Authenticated By: Onur Marcano MD Signed Date/Time: 08/24/20 0355 - Medical Decision Making Patient ruled out for acute NV. His EKG and his troponin is within normal l imits. Patient is chest discomfort likely secondary to is grief reaction however will give the patient cardiology for follow-up. Patient given outpatient mental health resources as well. Patient be discharged home. Critical care attestation.: If time is entered above; I have spent that time in minutes in the direct care of this critically ill patient, excluding procedure time. ED Disposition Clinical Impression: Chest pain, Grief reaction Disposition: DC-01 TO HOME OR SELFCARE Is pt being admited?: No Does the pt Need Aspirin: No Condition: Stable Instructions: Nonspecific Chest Pain, Adult, Complicated Grief Referrals: STEVE BURNS MD [Staff Physician] - 3-5 Days Time of Disposition: 05:23
[2020-08-24 06:21] VITALS: BP 130/86
--- NOTE | 2020-08-28 08:38 | Electrocardiograph Report ---
[facility] Test Date: 2020-08-24 Test Time: 03:29:01 Pat Name: EDWARDO RUGGIERO Department: Room: Gender: M Fire Support Specialist: JUDITH Pond : 1960 Requested By: CHRISTIN SHAHID Order Number: [id number] Reading MD: Jose Warren Measurements Intervals [place] Rate: 98 P: 66 ID: [id number] QRS: 11 QRSD: 93 T: 12 QT: 401 QTc: 513 Interpretive Statements Sinus rhythm Prolonged QT interval No previous ECG available for comparison Electronically Signed On 08-28-2020 5:38:14 PDT by Jose Warren
== END 2020-08-24 06:15 | disposition home or self-care (01) ==
LOC: ED 03:06
DX: R07.89 Other chest pain (principal); F43.20 Adjustment disorder, unspecified; I11.0 Hypertensive heart disease with heart failure; I50.9 Heart failure, unspecified; F17.200 Nicotine dependence, unspecified, uncomplicated; Z90.49 Acquired absence of other specified parts of digestive tract; Z79.899 Other long term (current) drug therapy; Z79.82 Long term (current) use of aspirin
CPT/HCPCS: 36415; 71046; 80053; 84484; 85025; 93005; 99283

== ENCOUNTER 2020-08-24 11:39 | Emergency (ER) | payer MEDICAID ==
--- NOTE | 2020-08-24 12:21 | Emergency Department Report ---
Chief Complaint: Alcohol Stated Complaint: DETOX - HPI History of Present Illness: 60-year-old -[place] male presents presents to the emergency room for checking back in this morning for detox from alcohol and drugs. Patient was seen last night and cleared from cardiac standpoint. Patient reports his last drink was yesterday. Patient was referred to outpatient resources for drugs and alcohol. Patient denies any chest pain or body aches shortness of breath at this time. Patient denies any suicidal ideation. Patient just states that if he is on the street is dangerous. - Exam Vital Signs: Vital Signs 08/24/20 11:52 Temperature 98.4 F Pulse Rate 88 Respiratory 20 Rate Blood Pressure 182/81 O2 Sat by Pulse 96 Oximetry Physical Exam: Patient is alert and oriented x3 no acute distress nontoxic in appearance Effortless breath no accessory muscles use Cardiac rate is regular Patient is ambulatory without difficulties no tremors appreciated Has stable mood good judgment no cognitive impairment MSE screening note: Focused history and physical exam performed. Due to findings the following was ordered: 60-year-old -[place] male presents presents to the emergency room for checking back in this morning for detox from alcohol and drugs. Patient was seen last night and cleared from cardiac standpoint. Patient reports his last drink was yesterday. Patient was referred to outpatient resources for drugs and alcohol. Patient denies any chest pain or body aches shortness of breath at this time. Patient denies any suicidal ideation. Patient just states that if he is on the street is dangerous. ED Disposition for MSE Condition: Stable
== END 2020-08-24 12:57 ==
LOC: ED 11:39

== ENCOUNTER 2020-11-02 15:00 | Inpatient (IN) | payer MEDICAID ==
[2020-11-02] MEDS ORDERED: FUROSEMIDE 40 MG/4 ML INJ IV ONE (15:05)
[2020-11-02] MEDS ORDERED: FUROSEMIDE 40 MG/4 ML INJ ONE (15:10)
[2020-11-02 16:21] LABS: Basophils # (Auto) 0.1 K/mm3 (0.0-0.1); Basophils % (Auto) 0.9 % (0.0-1.8); Eosinophils # (Auto) 0.3 K/mm3 (0.0-0.4); Eosinophils % (Auto) 4.7 % (0.0-4.3); Hematocrit 46.5 % (35.5-45.6); Hemoglobin 15.5 gm/dl (11.8-15.2); Lymphocytes # (Auto) 2.4 K/mm3 (1.2-5.4); Lymphocytes % (Auto) 36.2 % (13.4-35.0); Mean Corpuscular HGB Conc 33 % (32-34); Mean Corpuscular Volume 102 fl (84-94); Monocytes # (Auto) 0.7 K/mm3 (0.0-0.8); Monocytes % (Auto) 10.4 % (0.0-7.3); Platelet Count 222 K/mm3 (140-440); Red Blood Count 4.57 M/mm3 (3.65-5.03); Red Cell Distribution Width 14.3 % (13.2-15.2)
[2020-11-02 16:33] LABS: INR 0.93 (0.87-1.13)
[2020-11-02 16:41] LABS: Bacteria,Urine 1+ /HPF (Negative); Bilirubin,Urine NEG (Negative); Blood,Urine MOD (Negative); Color,Urine Yellow (Yellow); Mucus,Urine FEW /HPF; Urobilinogen,Urine < 2.0 mg/dL (<2.0)
[2020-11-02 16:45] LABS: Creatine Kinase MB 3.7 ng/mL (0.0-4.0)
[2020-11-02 16:47] LABS: Creatine Kinase MB 3.7 ng/mL (0.0-4.0)
[2020-11-02 16:48] LABS: Amphetamine Screen,Urine PRESUMPTIVE POSITIVE; Benzodiazepines Screen,Urine PRESUMPTIVE NEGATIVE; Cannabinoid Screen,Urine PRESUMPTIVE NEGATIVE; Cocaine Screen,Urine PRESUMPTIVE POSITIVE; Methadone Screen,Urine PRESUMPTIVE NEGATIVE; Opiate Screen,Urine PRESUMPTIVE NEGATIVE
[2020-11-02 16:48] LABS: Alanine Aminotransferase 16 units/L (7-56); Albumin 4.5 g/dL (3.9-5)
[2020-11-02 16:49] LABS: BUN/Creatinine Ratio 8; Blood Urea Nitrogen 7 mg/dL (9-20); Calcium 8.9 mg/dL (8.4-10.2); Hemolysis Index 41
[2020-11-02 16:54] LABS: Bilirubin,Direct < 0.2 mg/dL (0-0.2)
[2020-11-02] MEDS ORDERED: ASPIRIN 300 MG RECT SUPP PR ONE (17:14)
[2020-11-02] MEDS ORDERED: IBUPROFEN 600 MG TAB PO PRN (18:22)
[2020-11-02] MEDS ORDERED: traMADol 50 MG TAB PO PRN (18:22)
[2020-11-02] MEDS ORDERED: ACETAMINOPHEN 325 MG TAB PO PRN (18:23)
[2020-11-02] MEDS ORDERED: ALBUTEROL 2.5 MG/3 ML NEBU IH PRN (18:23)
[2020-11-02] MEDS ORDERED: ONDANSETRON 4 MG/2 ML INJ IV PRN (18:23)
[2020-11-02] MEDS ORDERED: hydrALAZINE 20 MG/1 ML INJ IV PRN (18:27)
[2020-11-02] MEDS: methylPREDNISolone Sod Succinate 40 MG/1 ML INJ IV SCH (19:48)
[2020-11-02] MEDS: cefTRIAXone/NS 2 GM/100 ML 2 GM/100 ML BAG IV SCH (19:48)
[2020-11-02] MEDS: IPRATROPIUM/ALBUTEROL SULFATE 3 ML AMPUL.NEB IH SCH (22:20)
[2020-11-02] MEDS: HEPARIN 5,000 UNIT/1 ML VIAL SUB-Q SCH (23:34)
[2020-11-02] MEDS: traZODone 50 MG TAB PO SCH (23:35)
[2020-11-02] MEDS: carvediloL 6.25 MG TAB PO SCH (23:35)
[2020-11-02] MEDS: FAMOTIDINE 20 MG TAB PO SCH (23:35)
[2020-11-02] MEDS: DIVALPROEX DR 125 MG TAB PO SCH (23:37)
[2020-11-02] MEDS: AZITHROMYCIN/NS 500 MG/250 ML 500 MG/250 ML BAG IV SCH (23:44)
[2020-11-03] MEDS: IPRATROPIUM/ALBUTEROL SULFATE 3 ML AMPUL.NEB IH SCH ×4 (01:08→19:10)
[2020-11-03] MEDS: methylPREDNISolone Sod Succinate 40 MG/1 ML INJ IV SCH ×2 (03:10→11:40)
[2020-11-03] MEDS: HEPARIN 5,000 UNIT/1 ML VIAL SUB-Q SCH ×3 (05:28→21:17)
[2020-11-03] MEDS: FUROSEMIDE 40 MG TAB PO SCH (05:29)
[2020-11-03 07:59] LABS: BUN/Creatinine Ratio 10; Blood Urea Nitrogen 8 mg/dL (9-20); Calcium 9.8 mg/dL (8.4-10.2); Hemolysis Index 17
[2020-11-03 08:03] LABS: Basophils % (Auto) 0.3 % (0.0-1.8); Eosinophils % (Auto) 0.1 % (0.0-4.3); Hematocrit 45.8 % (35.5-45.6); Hemoglobin 15.3 gm/dl (11.8-15.2); Lymphocytes # (Auto) 0.9 K/mm3 (1.2-5.4); Lymphocytes % (Auto) 11.3 % (13.4-35.0); Mean Corpuscular HGB Conc 34 % (32-34); Mean Corpuscular Volume 102 fl (84-94); Monocytes # (Auto) 0.2 K/mm3 (0.0-0.8); Monocytes % (Auto) 2.7 % (0.0-7.3); Platelet Count 208 K/mm3 (140-440); Red Blood Count 4.51 M/mm3 (3.65-5.03)
[2020-11-03] MEDS: MULTIVITAMINS,THER W-MINERALS TAB PO SCH (09:37)
[2020-11-03] MEDS: SPIRONOLACTONE 25 MG TAB PO SCH (09:37)
[2020-11-03] MEDS: LISINOPRIL 5 MG TAB PO SCH (09:38)
[2020-11-03] MEDS: carvediloL 6.25 MG TAB PO SCH ×2 (09:38→21:20)
[2020-11-03] MEDS: FAMOTIDINE 20 MG TAB PO SCH ×2 (09:38→21:17)
[2020-11-03] MEDS: FLUoxetine 20 MG CAP PO SCH (09:39)
[2020-11-03] MEDS: DIVALPROEX DR 125 MG TAB PO SCH ×2 (09:39→21:17)
[2020-11-03] MEDS: ASPIRIN EC 81 MG TAB PO SCH (09:39)
[2020-11-03] MEDS ORDERED: NON-FORMULARY EACH (Multivitamin [Multiple Vitamins] 1 EACH Tablet) PO SCH (10:00)
[2020-11-03] MEDS: predniSONE 20 MG TAB PO SCH (17:00)
[2020-11-03] MEDS: ARFORMOTEROL 15 MCG/2 ML NEBU IH SCH (19:10)
[2020-11-03] MEDS: BUDESONIDE 0.5 MG/2 ML NEBU IH SCH (19:10)
[2020-11-03] MEDS: cefTRIAXone/NS 2 GM/100 ML 2 GM/100 ML BAG IV SCH (19:53)
[2020-11-03] MEDS: traZODone 50 MG TAB PO SCH (21:17)
[2020-11-03] MEDS: AZITHROMYCIN/NS 500 MG/250 ML 500 MG/250 ML BAG IV SCH (21:17)
[2020-11-04] MEDS: IPRATROPIUM/ALBUTEROL SULFATE 3 ML AMPUL.NEB IH SCH ×4 (02:42→21:47)
[2020-11-04] MEDS: HEPARIN 5,000 UNIT/1 ML VIAL SUB-Q SCH ×3 (06:51→22:17)
[2020-11-04] MEDS: FUROSEMIDE 40 MG TAB PO SCH (06:51)
[2020-11-04] MEDS: ARFORMOTEROL 15 MCG/2 ML NEBU IH SCH ×2 (08:35→21:47)
[2020-11-04] MEDS: ASPIRIN EC 81 MG TAB PO SCH (09:20)
[2020-11-04] MEDS: MULTIVITAMINS,THER W-MINERALS TAB PO SCH (09:20)
[2020-11-04] MEDS: FAMOTIDINE 20 MG TAB PO SCH ×2 (09:20→22:16)
[2020-11-04] MEDS: DIVALPROEX DR 125 MG TAB PO SCH ×2 (09:20→22:16)
[2020-11-04] MEDS: carvediloL 6.25 MG TAB PO SCH ×2 (09:20→22:16)
[2020-11-04] MEDS: SPIRONOLACTONE 25 MG TAB PO SCH (09:21)
[2020-11-04] MEDS: predniSONE 20 MG TAB PO SCH (09:21)
[2020-11-04] MEDS: LISINOPRIL 5 MG TAB PO SCH (09:21)
[2020-11-04] MEDS: FLUoxetine 20 MG CAP PO SCH (09:21)
[2020-11-04] MEDS: BUDESONIDE 0.5 MG/2 ML NEBU IH SCH ×2 (14:28→21:47)
[2020-11-04] MEDS: cefTRIAXone/NS 2 GM/100 ML 2 GM/100 ML BAG IV SCH (20:46)
[2020-11-04] MEDS ORDERED: guaiFENesin ER 600 MG TAB PO PRN (21:09)
[2020-11-04] MEDS: traZODone 50 MG TAB PO SCH (22:16)
[2020-11-04] MEDS: AZITHROMYCIN 250 MG TAB PO SCH (22:16)
[2020-11-05] MEDS: IPRATROPIUM/ALBUTEROL SULFATE 3 ML AMPUL.NEB IH SCH ×4 (02:54→20:54)
[2020-11-05] MEDS: HEPARIN 5,000 UNIT/1 ML VIAL SUB-Q SCH ×3 (06:26→22:21)
[2020-11-05] MEDS: FUROSEMIDE 40 MG TAB PO SCH (06:26)
[2020-11-05] MEDS: ARFORMOTEROL 15 MCG/2 ML NEBU IH SCH ×2 (08:10→20:54)
[2020-11-05] MEDS: BUDESONIDE 0.5 MG/2 ML NEBU IH SCH ×2 (08:10→20:53)
[2020-11-05] MEDS: DIVALPROEX DR 125 MG TAB PO SCH ×2 (10:28→22:20)
[2020-11-05] MEDS: ASPIRIN EC 81 MG TAB PO SCH (10:28)
[2020-11-05] MEDS: carvediloL 6.25 MG TAB PO SCH ×2 (10:29→22:21)
[2020-11-05] MEDS: predniSONE 20 MG TAB PO SCH (10:29)
[2020-11-05] MEDS: SPIRONOLACTONE 25 MG TAB PO SCH (10:29)
[2020-11-05] MEDS: FAMOTIDINE 20 MG TAB PO SCH ×2 (10:29→22:20)
[2020-11-05] MEDS: LISINOPRIL 5 MG TAB PO SCH (10:29)
[2020-11-05] MEDS: FLUoxetine 20 MG CAP PO SCH (10:29)
[2020-11-05] MEDS: MULTIVITAMINS,THER W-MINERALS TAB PO SCH (10:30)
[2020-11-05] MEDS: cefTRIAXone/NS 2 GM/100 ML 2 GM/100 ML BAG IV SCH (22:18)
[2020-11-05] MEDS: traZODone 50 MG TAB PO SCH (22:20)
[2020-11-05] MEDS: AZITHROMYCIN 250 MG TAB PO SCH (22:20)
[2020-11-06] MEDS: IPRATROPIUM/ALBUTEROL SULFATE 3 ML AMPUL.NEB IH SCH ×2 (03:36→08:56)
[2020-11-06] MEDS: FUROSEMIDE 40 MG TAB PO SCH (05:33)
[2020-11-06] MEDS: HEPARIN 5,000 UNIT/1 ML VIAL SUB-Q SCH (05:34)
[2020-11-06] MEDS: ARFORMOTEROL 15 MCG/2 ML NEBU IH SCH (08:55)
[2020-11-06] MEDS: BUDESONIDE 0.5 MG/2 ML NEBU IH SCH (08:56)
[2020-11-06] MEDS: FAMOTIDINE 20 MG TAB PO SCH (09:19)
[2020-11-06] MEDS: ASPIRIN EC 81 MG TAB PO SCH (09:19)
[2020-11-06] MEDS: FLUoxetine 20 MG CAP PO SCH (09:20)
[2020-11-06] MEDS: MULTIVITAMINS,THER W-MINERALS TAB PO SCH (09:20)
[2020-11-06] MEDS: carvediloL 6.25 MG TAB PO SCH (09:20)
[2020-11-06] MEDS: SPIRONOLACTONE 25 MG TAB PO SCH (09:21)
[2020-11-06] MEDS: predniSONE 20 MG TAB PO SCH (09:21)
[2020-11-06] MEDS: LISINOPRIL 5 MG TAB PO SCH (09:29)
[2020-11-06] MEDS: DIVALPROEX DR 125 MG TAB PO SCH (09:36)
[2020-11-06 12:22] VITALS: BP 146/94
== END 2020-11-06 13:00 | disposition home or self-care (01) | DRG 177 ==
LOC: ED 15:00 → IMCU 18:46 → 4A 11-05 12:18
PROVIDERS: ADMIT Hospitalist; ATTEND Internal Medicine
PROC: 5A09457 Assistance with Respiratory Ventilation, 24-96 Consecutive Hours, Continuous Positive Airway Pressure (ICD-10-PCS; principal; 2020-11-02)
PROC: 4A033R1 Measurement of Arterial Saturation, Peripheral, Percutaneous Approach (ICD-10-PCS; 2020-11-02)
DX: J69.0 Pneumonitis due to inhalation of food and vomit (principal); J96.02 Acute respiratory failure with hypercapnia; I50.23 Acute on chronic systolic (congestive) heart failure; Z20.822 Contact with and (suspected) exposure to COVID-19; J44.1 Chronic obstructive pulmonary disease with (acute) exacerbation; F14.10 Cocaine abuse, uncomplicated; F20.0 Paranoid schizophrenia; I11.0 Hypertensive heart disease with heart failure; J44.0 Chronic obstructive pulmonary disease with (acute) lower respiratory infection; G47.33 Obstructive sleep apnea (adult) (pediatric); F15.10 Other stimulant abuse, uncomplicated; I42.8 Other cardiomyopathies; G89.29 Other chronic pain; M54.9 Dorsalgia, unspecified; M54.30 Sciatica, unspecified side; F31.9 Bipolar disorder, unspecified; E66.01 Morbid (severe) obesity due to excess calories; Z79.899 Other long term (current) drug therapy; Z79.891 Long term (current) use of opiate analgesic; Z79.01 Long term (current) use of anticoagulants; Z90.49 Acquired absence of other specified parts of digestive tract; Z79.82 Long term (current) use of aspirin
CPT/HCPCS: 36415; 71045; 80048; 80076; 80307; 81001; 82140; 82550; 82553; 82805; 82962; 83735; 83880; 84484; 85025; 85379; 85610; 85730; 87086; 93005; 94640; 94644; 99292; 99406; G0378; J0360; J0456; J0696; J1644; J1940; J2920; J7512

== ENCOUNTER 2020-11-27 18:00 | Emergency (ER) | payer MEDICAID ==
[2020-11-27] MEDS ORDERED: ASPIRIN 325 MG TAB PO ONE (18:13)
[2020-11-27 18:47] LABS: Basophils % (Auto) 0.7 % (0.0-1.8); Eosinophils # (Auto) 0.3 K/mm3 (0.0-0.4); Eosinophils % (Auto) 4.7 % (0.0-4.3); Hematocrit 39.9 % (35.5-45.6); Hemoglobin 13.5 gm/dl (11.8-15.2); Lymphocytes # (Auto) 1.8 K/mm3 (1.2-5.4); Mean Corpuscular HGB Conc 34 % (32-34); Mean Corpuscular Volume 102 fl (84-94); Monocytes # (Auto) 0.4 K/mm3 (0.0-0.8); Monocytes % (Auto) 5.9 % (0.0-7.3); Platelet Count 184 K/mm3 (140-440); Red Blood Count 3.89 M/mm3 (3.65-5.03); Red Cell Distribution Width 13.9 % (13.2-15.2)
[2020-11-27 18:54] LABS: INR 0.93 (0.87-1.13)
[2020-11-27 18:55] LABS: Partial Thromboplastin Time 29.6 Sec. (24.2-36.6)
--- NOTE | 2020-11-27 18:59 | XRay Report ---
CHEST PA AND LATERAL VIEWS INDICATION: CP/ SOB. COMPARISON: 11/04/2020 FINDINGS: Support devices: None Heart: Normal and unchanged Lungs/Pleura: No acute pulmonary or pleural findings. IMPRESSION: 1. No significant abnormality and no interval change. Signer Name: Onur Marcano MD Signed: 11/27/2020 6:54 PM Workstation Name: [id number]
[2020-11-27 19:02] LABS: Alanine Aminotransferase 16 units/L (7-56); Albumin 3.8 g/dL (3.9-5); BUN/Creatinine Ratio 9; Blood Urea Nitrogen 8 mg/dL (9-20); Hemolysis Index 6
--- NOTE | 2020-11-27 21:18 | Emergency Department Report ---
HPI - General Chief Complaint: Dyspnea/Respdistress Time Seen by Provider: 11/27/20 21:08 - HPI HPI: Room 7 The patient is a 60-year-old male present with chief complaint of shortness of breath and chest pain. The patient states for the past month he has had intermittent shortness of breath and chest pain. Patient describes his chest pain is pressure-like in nature. Patient also admits to a cough productive of green sputum for the past 1-2 months. Patient admits to slight pleurisy. Patient states he is driven 500 miles in the last 2 weeks. Patient denies nausea/vomiting with his pain but admits to diaphoresis. Patient states he never had a stress test but his last cardiac catheterization occurred in May 2020. There is no significant stenosis seen ED Past Medical Hx - Past Medical History Hx Hypertension: Yes Hx Heart Attack/AMI: Yes Hx Congestive Heart Failure: Yes Additional medical history: chronic back, Drug use and ETOH abuse - Surgical History Hx Cholecystectomy: Yes - Family History Family history: no significant - Social History Smoking Status: Former Smoker (None x1 week) Substance Use Type: Cocaine (None x1 week) - Medications Home Medications: Home Medications Medication Instructions Recorded Confirmed Last Taken Type Acetaminophen [Acetaminophen TAB] 650 mg PO Q4H PRN tablet 06/21/20 11/02/20 11/02/20 Rx Aspirin EC [Halfprin EC] 81 mg PO QDAY #30 tablet 06/21/20 11/02/20 Unknown Rx Divalproex [Gemma Aparicio] 125 mg PO BID tablet 06/21/20 11/02/20 Unknown Rx Furosemide [Lasix] 40 mg PO QDAY #30 tablet 06/21/20 11/02/20 11/02/20 Rx Spironolactone [Aldactone] 25 mg PO QDAY #30 tablet 06/21/20 11/02/20 11/02/20 Rx carvediloL [Coreg] 6.25 mg PO BID #60 tablet 06/21/20 11/02/20 Unknown Rx lisinopriL [Zestril TAB] 5 mg PO QDAY #30 tablet 06/21/20 11/02/20 11/02/20 Rx traMADoL [Ultram 50 MG tab] 50 mg PO Q6H PRN #14 tablet 06/21/20 11/02/20 11/02/20 Rx FLUoxetine [PROzac] 20 mg PO QDAY #30 capsule 06/29/20 11/02/20 11/02/20 Rx Melatonin [Melatonin 5MG TAB] 5 mg PO QHS PRN #30 tablet 06/29/20 11/02/20 11/02/20 Rx OLANzapine [ZyPREXA] 7.5 mg PO QHS #45 tablet 06/29/20 11/02/20 11/02/20 Rx traZODone [Desyrel] 50 mg PO QHS #30 tablet 06/29/20 11/02/20 11/02/20 Rx Multivitamin [Multiple Vitamins] 1 each PO DAILY #30 tablet 07/08/20 11/02/20 11/02/20 Rx Famotidine [Pepcid] 40 mg PO QHS #10 tablet 08/24/20 11/02/20 Unknown Rx Albuterol Mdi (or & Nicu Only) 2 puff IH QID PRN #8.5 gram 11/06/20 Unknown Rx [ProAir HFA Inhaler] Azithromycin [Zithromax] 250 mg PO DAILY #3 tablet 11/06/20 Unknown Rx Ipratropium/Albuterol Sulfate 1 ampul IH Q6HRT #30 ampul.neb 11/06/20 Unknown Rx [DUONEB *Not for PRN Use*] guaiFENesin ER [Mucinex ER] 1,200 mg PO BID PRN #14 tablet 11/06/20 Unknown Rx predniSONE 10 mg PO .TAPER #21 tab 11/06/20 Unknown Rx Albuterol Mdi (or & Nicu Only) 2 puff IH QID PRN #8.5 gram 11/28/20 Unknown Rx [ProAir HFA Inhaler] HYDROcodone/APAP 5-325 [[place] 1 each PO Q6HR PRN #10 tablet 11/28/20 Unknown Rx 5/325] hydroCHLOROthiazide [HCTZ] 25 mg PO QDAY #90 tablet 11/28/20 Unknown Rx levoFLOXacin [Levaquin TAB] 500 mg PO QDAY #10 tablet 11/28/20 Unknown Rx ED Review of Systems ROS: Stated complaint: CHEST PAINS BACK PAINS SOB Other details as noted in HPI Constitutional: diaphoresis, fever (? Subjective) Eyes: denies: eye pain ENT: denies: throat pain Respiratory: cough, shortness of breath Cardiovascular: chest pain Endocrine: no symptoms reported Gastrointestinal: denies: nausea, vomiting Genitourinary: denies: dysuria Musculoskeletal: denies: back pain Neurological: denies: headache Physical Exam - Physical Exam Vital Signs: Vital Signs 11/27/20 18:12 Temperature 98.7 F Pulse Rate 99 H Respiratory 22 Rate Blood Pressure 116/83 O2 Sat by Pulse 93 Oximetry Physical Exam: GENERAL: The patient is well-developed well-nourished male lying on stretcher not appearing to be in acute distress. [] HEENT: Normocephalic. Atraumatic. Extraocular motions are intact. Patient has moist mucous membranes. NECK: Supple. Trachea midline CHEST/LUNGS: Clear to auscultation. There is no respiratory distress noted. HEART/CARDIOVASCULAR: Regular. There is no tachycardia. There is no gallop rub or murmur. ABDOMEN: Abdomen is soft, nontender. Patient has normal bowel sounds. There is no abdominal distention. SKIN: There is no rash. There is no edema. There is no diaphoresis. NEURO: The patient is awake, alert, and oriented. The patient is cooperative. The patient has no focal neurologic deficits. The patient has normal speech MUSCULOSKELETAL: There is no evidence of acute injury. ED Course Vital Signs 11/27/20 18:12 Temperature 98.7 F Pulse Rate 99 H Respiratory 22 Rate Blood Pressure 116/83 O2 Sat by Pulse 93 Oximetry ED Medical Decision Making - Lab Data Result diagrams: 11/27/20 18:21 11/27/20 18:21 Laboratory Tests 11/27/20 11/27/20 11/27/20 18:21 18:21 18:21 WBC 7.3 RBC 3.89 Hgb 13.5 Hct 39.9 MCV 102 H MCH 35 H MCHC 34 RDW 13.9 Plt Count 184 Lymph % (Auto) 24.0 [place] % (Auto) 5.9 Eos % (Auto) 4.7 H Baso % (Auto) 0.7 Lymph # (Auto) 1.8 [place] # (Auto) 0.4 Eos # (Auto) 0.3 Baso # (Auto) 0.0 Seg Neutrophils % 64.7 Seg Neutrophils # 4.7 PT 13.1 INR 0.93 APTT 29.6 D-Dimer Sodium 143 Potassium 3.1 L Chloride 107.0 Carbon Dioxide 26 Anion Gap 13 BUN 8 L Creatinine 0.9 Estimated GFR > 60 BUN/Creatinine Ratio 9 Glucose 125 H Calcium 9.0 Total Bilirubin 0.70 AST 12 ALT 16 Alkaline Phosphatase 79 Troponin T < 0.010 NT-Pro-B Natriuret Pep Total Protein 6.4 Albumin 3.8 L Albumin/Globulin Ratio 1.5 Drugs of Abuse Note 11/27/20 11/27/20 11/27/20 18:21 18:21 21:18 WBC RBC Hgb Hct MCV MCH MCHC RDW Plt Count Lymph % (Auto) [place] % (Auto) Eos % (Auto) Baso % (Auto) Lymph # (Auto) [place] # (Auto) Eos # (Auto) Baso # (Auto) Seg Neutrophils % Seg Neutrophils # PT INR APTT D-Dimer 282.46 H Sodium Potassium Chloride Carbon Dioxide Anion Gap BUN Creatinine Estimated GFR BUN/Creatinine Ratio Glucose Calcium Total Bilirubin AST ALT Alkaline Phosphatase Troponin T < 0.010 NT-Pro-B Natriuret Pep 890.5 Total Protein Albumin Albumin/Globulin Ratio Drugs of Abuse Note 11/28/20 11/28/20 00:59 04:23 WBC RBC Hgb Hct MCV MCH MCHC RDW Plt Count Lymph % (Auto) [place] % (Auto) Eos % (Auto) Baso % (Auto) Lymph # (Auto) [place] # (Auto) Eos # (Auto) Baso # (Auto) Seg Neutrophils % Seg Neutrophils # PT INR APTT D-Dimer Sodium Potassium Chloride Carbon Dioxide Anion Gap BUN Creatinine Estimated GFR BUN/Creatinine Ratio Glucose Calcium Total Bilirubin AST ALT Alkaline Phosphatase Troponin T < 0.010 NT-Pro-B Natriuret Pep Total Protein Albumin Albumin/Globulin Ratio Drugs of Abuse Note Disclamer - EKG Data -: EKG Interpreted by Me EKG shows normal: sinus rhythm Rate: normal - EKG Data When compared to previous EKG there are: no significant change Interpretation: unchanged when compared t (11/02/2020) 11/27/20 21:50 EKG #2 at 21: 46 Normal sinus rhythm at 96 bpm. Unchanged from previous EKG done earlier today at approximately 18:17 - Radiology Data Radiology results: report reviewed (Chest x-ray, CT chest), image reviewed (Chest x-ray, CT chest) interpreted by me: Chest x-ray-no focal infiltrates, no pneumothorax. No foreign body seen [facility] [address] [place] [address] XRay Report Signed Patient: EDWARDO RUGGIERO III MR#: [id number] : 1960 Ac ct:[id number] Age/Sex: 60 / M ADM Date: 11/27/20 Loc: ED Attending Dr: Ordering Physician: NEAL HART MD Date of Service: 11/27/20 Procedure(s): XR chest routine 2V Accession Number(s): [id number] cc: NEAL HART MD Fluoro Time In Minutes: CHEST PA AND LATERAL VIEWS INDICATION: CP/ SOB. COMPARISON: 11/04/2020 FINDINGS: Support devices: None Heart: Normal and unchanged Lungs/Pleura: No acute pulmonary or pleural findings. IMPRESSION: 1. No significant abnormality and no interval change. Signer Name: Onur Marcano MD Signed: 11/27/2020 6:54 PM Workstation Name: [id number] Transcribed By: TM Dictated By: Onur Marcano MD Electronically Authenticated By: Onur Marcano MD Signed Date/Time: 11/27/201853 DD/ 53 TD/TT: Print Cancel [facility] [address] [place] [address] Cat Scan Report Signed Patient: EDWARDO RUGGIERO III MR#: [id number] : 1960 Acct:[id number] Age/Sex: 60 / M ADM Date: 11/27/20 Loc: ED Attending Dr: Ordering Physician: JEROME LANG MD Date of Service: 11/27/20 Procedure(s): CT angio chest Accession Number(s): [id number] cc: JEROME LANG MD CTA CHEST WITH IV CONTRAST INDICATION: Patient complains of chest pain with shortness of breath. TECHNIQUE: Axial CT images were obtained through the chest after injection of 100 mL IV contrast. 3 plane MIP reconstructions were produced. All CT scans at this location are performed using CT dose reduction for ALARA by means of automated exposure control. COMPARISON: None available. FINDINGS: PULMONARY ARTERIES: No pulmonary emboli. AORTA AND ARTERIES: No acute abnormality. Coronary artery calcification MEDIASTINUM: Mild bilateral hilar adenopathy. The heart size is borderline enlarged. LUNGS: Left lower lobe airspace disease. Small left pleural effusion. The right lung is grossly clear. ADDITIONAL FINDINGS: None. UPPER ABDOMEN: No acute findings. BONES: No significant osseous abnormality. IMPRESSION: 1. No CT evidence for pulmonary embolism. 2. Left lower lobe pneumonia, possibly aspiration related. Tiny left pleural effusion. Signer Name: Zach Pacheco MD Signed: 11/27/2020 11:46 PM Workstation Name: [id number] Transcribed By: BC Dictated By: Zach Pacheco MD Electronically Authenticated By: Zach Pacheco MD Signed Date/Time: 11/27/202345 DD/ 43 TD/TT: Print Cancel - Differential Diagnosis ACS, PE, pericarditis, GERD, costochondritis, bronchitis, pneumonia Critical care attestation.: If time is entered above; I have spent that time in minutes in the direct care of this critically ill patient, excluding procedure time. ED Disposition Clinical Impression: Atypical chest pain, Pneumonia Disposition: TO HOME OR SELFCARE Is pt being admited?: No Does the pt Need Aspirin: No Condition: Stable Instructions: Nonspecific Chest Pain, Adult, Bacterial Pneumonia (ED), C ommunity-Acquired Pneumonia, Adult Additional Instructions: Return to the emergency department should you develop worsening symptoms, inability to tolerate food or liquids, high fever or any other concerns Prescriptions: hydroCHLOROthiazide [HCTZ] 25 mg PO QDAY #90 tablet levoFLOXacin [Levaquin TAB] 500 mg PO QDAY #10 tablet HYDROcodone/APAP 5-325 [[place] 5/325] 1 each PO Q6HR PRN #10 tablet PRN Reason: Pain Albuterol Mdi (or & Nicu Only) [ProAir HFA Inhaler] 2 puff IH QID PRN #8.5 gram PRN Reason: Shortness Of Breath Referrals: PRIMARY CARE, [Primary Care Provider] - 3-5 Days Time of Disposition: 04:49 Heart Score - HEART Score History: Slightly suspicious EKG: Normal Age: 45-65 Risk factors: 1-2 risk factors Troponin: < normal limit HEART Score: 2 - EKG Read Time Time EKG Completed: 18:17 EKG Read Time: 18:20
[2020-11-27] MEDS ORDERED: POTASSIUM CHLORIDE ER 20 MEQ TAB PO ONE (21:22)
--- NOTE | 2020-11-27 23:51 | Cat Scan Report ---
CTA CHEST WITH IV CONTRAST INDICATION: Patient complains of chest pain with shortness of breath. TECHNIQUE: Axial CT images were obtained through the chest after injection of 100 mL IV contrast. 3 plane MIP re constructions were produced. All CT scans at this location are performed using CT dose reduction for ALARA by means of automated exposure control. COMPARISON: None available. FINDINGS: PULMONARY ARTERIES: No pulmonary emboli. AORTA AND ARTERIES: No acute abnormality. Coronary artery calcification MEDIASTINUM: Mild bilateral hilar adenopathy. The heart size is borderline enlarged. LUNGS: Left lower lobe airspace disease. Small left pleural effusion. The right lung is grossly clear . ADDITIONAL FINDINGS: None. UPPER ABDOMEN: No acute findings. BONES: No significant osseous abnormality. IMPRESSION: 1. No CT evidence for pulmonary embolism. 2. Left lower lobe pneumonia, possibly aspiration related. Tiny left pleural effusion. Signer Name: Zach Pacheco MD Signed: 11/27/2020 11:46 PM Workstation Name: [id number]
[2020-11-28 04:41] LABS: Amphetamine Screen,Urine Negative; Benzodiazepines Screen,Urine Negative; Cannabinoid Screen,Urine Negative; Methadone Screen,Urine Negative; Opiate Screen,Urine Negative
[2020-11-28 04:42] VITALS: BP 138/96
[2020-11-28] MEDS ORDERED: levoFLOXacin 500 MG TAB PO ONE (04:47)
[2020-11-28 04:59] LABS: Cocaine Screen,Urine Positive
--- NOTE | 2020-11-28 09:17 | Electrocardiograph Report ---
[facility] Test Date: 2020-11-27 Test Time: 18:17:37 Pat Name: EDWARDO RUGGIERO Department: Room: Gender: M Student Counselor: VALENTINA : 1960 Requested By: JEROME LANG Order Number: [id number] Reading MD: Fede Maravilla Measurements Intervals [place] Rate: 108 P: 0 ID: [id number] QRS: 0 QRSD: 99 T: QT: 347 QTc: 465 Interpretive Statements Sinus tachycardia Borderline prolonged ID interval Biatrial enlargement nonspecific st-t Nonspecific T abnormalities, inferior leads Compared to ECG 11/02/2020 15:11:32 Electronically Signed On 11-28-2020 9:17:07 EDT by Fede Maravilla
--- NOTE | 2020-11-28 09:19 | Electrocardiograph Report ---
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
== END 2020-11-28 06:10 | disposition home or self-care (01) ==
LOC: ED 18:00
DX: J18.9 Pneumonia, unspecified organism (principal); R07.89 Other chest pain; R06.03 Acute respiratory distress; I10 Essential (primary) hypertension; Z87.891 Personal history of nicotine dependence; I50.9 Heart failure, unspecified
CPT/HCPCS: 36415; 71046; 71275; 80053; 80307; 83880; 84484; 85025; 85379; 85610; 85730; 93005; 99284; Q9967